=== PATIENT | male | born 1980 | race Caucasian/White ===

== ENCOUNTER 2017-12-23 01:12 | Emergency (ER) | payer SELFPAY ==
[2017-12-23 01:14] VITALS: BP 120/84; PULSE 73; RESP 16; TEMP 36.8; O2SAT 98; BMI 24.6
--- NOTE | 2017-12-23 01:48 | ED.DCSUM_ITS ---
History of Present Illness Chief Complaint: Subst Abuse Informant: Patient Onset: Today Context: Gradual Onset Timing: Continuous Quality: anxiety Location: all over Current Severity: Severe Maximum Severity: Severe Relieved by: doing dope and drinking EtOH Associated Symptoms: nausea, dry heaves off and on, agitation, feeling disoriented Narrative: Patient states for 15-20 years, he has been drinking heavily daily. He states as of recently, he drinks 12-15 cans of beer per day. He also has been injecting heroin regularly, for maybe 1-2 years, he states daily constant for at least 6 months. He presents wanting detox. He has never gone through that before. He is feeling disoriented today because he did not shoot up heroin or drink since this morning, more than 12 hours ago. He is feeling very shaky and fidgety and anxious. Nausea all day that transiently resolved after shooting up heroin, dry heaving off and on. Some abdominal cramping earlier but that is gone. Recent Illness/Hospitalization: No - Past Medical History (1) Alcoholism /alcohol abuse Status: Chronic (2) IVDU (intravenous drug user) Status: Chronic Past Medical History - Allergies and Home Meds Allergies/Adverse Reactions: Allergies No Known Allergies Allergy (Verified 12/23/17 01:17) Home Medications: Home Medications Medication Instructions Recorded Lorazepam [Ativan] 1 mg PO TID PRN #12 tab 12/23/17 Primary Care Physician: Dawood Walter MD [NON-STAFF] - (for primary care) Surgical History: no surgical history Smoking Status: Current every day smoker - Family History Maternal Family History: Reports: No pertinent history Review of Systems All systems negative except as indicated Gastrointestinal: Reports: Abdominal pain, Nausea, Vomiting Psych: Reports: Anxiety. Denies: Suicidal thoughts Physical Exam Vital Signs/Narrative: Vital Signs Temp Pulse Resp BP Pulse Ox 12/23/17 01:14 98.3 F 73 16 120/84 H 98 Inital Vital Signs reviewed: Yes General: Well nourished, Well developed Head: Normocephalic, Atraumatic Eyes: Perrl, EOMI ENT: Moist mucous membranes, No rhinorrhea Neck: Supple, Nontender Cardiovascular: Regular rate, Regular rhythm, No murmurs. Negative for: Tachycardia Respiratory: No distress, CTA bilaterally, Chest nontender Abdomen: Soft, Nontender, Nondistended, Normal bowel sounds Back: Nontender, Normal Inspection Extremities: Nontender, No edema Skin: Normal color, No rash, - - Dry skin including palms. No sweat on forehead. Neurological: Alert, Cranial nerves II-XII grossly intact, Normal Strength, Normal Sensation, Normal Gait. Negative for: Oriented x3 - Disoriented to the date. Is 2 days off with regards to the day of the week. Oriented to person and place. Psychological: Agitated - mildly. fidgety, not thrashing., - - anxious Diagnostic/Tx/Re-eval - Medical Decision Making Pt's CIWAr score is 25, and his CINA score is 8. He is appropriate for admission and detox evaluation. After my evaluation and telling him this, it was determined that he has no insurance coverage. In order to be admitted to detox at this facility, he will need to pay salas, and given that, he is declining. I did treat him with intramuscular Ativan, Ultram, and oral Zofran for his symptoms. He feels much better. Since it is 3 in the morning, a message will be given to social work to contact him, so that we can attempt to get him into a detox program. He states that today he is broke, and has decreased access to alcohol because of that, but he is homeless but has someone that occasionally gives him money, so he will drink if he has access to alcohol , to keep him out of withdrawal. He also states that if the prescription is cheap, he could fill and take something. I will give him a prescription for Ativan to use as needed for anxiety, he is aware that I am unable to prescribe him medicines for withdrawal/addiction. He also understands that if he feels that he is getting worse and has no access to alcohol, he should return to the ER immediately. ED Disposition - Plan for ED Patient: Disposition: Home or Assisted Living Chief Complaint: Subst Abuse Diagnosis: Alcohol dependence, Opiate dependence, Opiate withdrawal Instructions: ED Withdrawal Alcohol, ED Drug Abuse General, ED Withdrawal Narcotic Prescriptions: Lorazepam [Ativan] 1 mg PO TID PRN #12 tab PRN Reason: Anxiety Referrals: Dawood Walter MD [NON-STAFF] - (for primary care)
[2017-12-23] MEDS: Ondansetron ODT 4 MG Tablet 8 MG PO (01:49)
[2017-12-23] MEDS: LORazepam 2 MG/ML Syringe IM (01:50)
[2017-12-23] MEDS: traMADol 50 MG Tablet 100 MG PO (01:55)
--- NOTE | 2017-12-23 02:54 | ED.RN ---
[facility] CONTACTED AND MESSAGE LEFT AT THIS TIME FOR FOLLOW UP CARE
[2017-12-23 03:32] VITALS: BP 134/92; PULSE 79; RESP 18; O2SAT 98
== END 2017-12-23 03:32 | disposition home or self-care (01) ==
PROVIDERS: Emergency Provider Emergency Medicine
DX: F10.20 Alcohol dependence, uncomplicated (principal); F11.23 Opioid dependence with withdrawal; Z59.0 Homelessness
CPT/HCPCS: 96372; 99283

== ENCOUNTER 2018-10-26 22:45 | Emergency (ER) | payer MEDICAID, SELFPAY ==
[2018-10-26 22:47] VITALS: BP 124/87; PULSE 74; RESP 18; TEMP 36.5; O2SAT 100; BMI 23.7
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
[2018-10-26 22:56] VITALS: BP 124/78; PULSE 75; RESP 23; O2SAT 100
[2018-10-26] MEDS: fentaNYL 100 MCG/2 ML Ampul 50 MCG IV (23:01)
[2018-10-26] MEDS: Ondansetron 4 MG/2 ML Vial IV (23:02)
[2018-10-26] MEDS: 0.9% Normal Saline 1,000 ML 1000 ML IV (23:04)
[2018-10-26 23:10] LABS: Absolute Lymphocyte Count 4.76 X10^3/ul (0.83-4.51); Absolute Neutrophil Count 3.5 X10^3/uL (2.0-7.7); Basophil# 0.12 X10^3/uL; Basophil% 1.3 % (0-1); Eosinophil# 0.26 X10^3/uL; Eosinophils% 2.9 % (0-5); Hematocrit 41.4 % (40-54); Hemoglobin 13.2 g/dl (13.0-16.5); Lymphocyte # 4.76 X10^3/ul (4.0); Lymphocyte % 52.4 % (19-41); Mean Corp Hgb Conc 31.9 g/gl (32-36); Mean Corpuscular Hgb 28.3 pg (27.0-32.0); Mean Corpuscular Volume 88.8 fL (80-94); Mean Platelet Vol. 10.5 fl (6.2-12.0); Monocyte# 0.46 X10^3/uL; Monocyte% 5.1 % (0-10); Neutrophil # 3.46 X10^3/uL (2.7-7.7); Neutrophil % 38.1 % (47-70); Platelet Count 236 K/mm3 (150-450); RBC Distribution Width CV 15.2 % (11.6-14.6); Red Blood Count 4.66 M/mm3 (4.6-6.2); White Blood Count 9.1 K/mm3 (4.4-11.0)
[2018-10-26 23:13] LABS: POSITIVE COUNT NO; POSITIVE DIFFERENTIAL NO; POSITIVE MORPHOLOGY NO
[2018-10-26 23:30] LABS: ALB/GLOB Ratio 1.1 RATIO (0.9-2.4); AST(SGOT) 229 U/L (15-37); Alanine Aminotransfer ALT/SGPT 240 U/L (16-61); Albumin, Serum 3.8 g/dL (3.2-5.0); Alkaline Phosphatase 79 U/L (45-117); Anion Gap 9 (5-15); BUN 17 mg/dL (7-18); BUN/Creat Ratio 16.8 RATIO (10-20); Calcium,Total 8.2 mg/dL (8.5-10.1); Chloride 105 mmol/L (98-107); Creatinine, Serum 1.01 mg/dL (0.70-1.30); EST Glomerular Filtration Rate 88 mL/min (>60); Est Glom Filt Rate - Afr Amer 107 mL/min (>60); Estimated Creatinine Clearance 109.91 ml/min; Globulin 3.6 g/dL (2.2-4.2); Glucose 98 mg/dL (74-106); Lipase 138 U/L (73-393); Potassium 3.8 mmol/L (3.5-5.1); Protein, Total 7.4 g/dL (6.4-8.2); Sodium Level 136 mmol/L (136-145)
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
[2018-10-26] MEDS: Diphth,Pertuss(Acell),Tet Vac 0.5 ML Vial IM (23:43)
[2018-10-26 23:46] VITALS: BP 126/88; PULSE 77; RESP 20; O2SAT 100
[2018-10-26 23:54] LABS: International Normalized Ratio 1.1; Prothrombin Time (Protime)PT. 14.1 SECONDS (11.7-14.9)
[2018-10-26 23:55] LABS: Partial Thromboplast Time 37.2 Seconds (24.1-36.2)
--- NOTE | 2018-10-27 00:39 | ED.RN ---
SPLINT APPLIED BY DR BETTS WITH ASSISTANCE OF 2 STAFF
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
[2018-10-27] MEDS: fentaNYL 100 MCG/2 ML Ampul 50 MCG IV (00:49)
[2018-10-27 01:08] VITALS: BP 142/94; PULSE 81; RESP 24; O2SAT 97
[2018-10-27 01:15] VITALS: BP 135/71; PULSE 74; RESP 16; O2SAT 100
== END 2018-10-27 01:10 | disposition short-term general hospital (02) ==
LOC: ED 10-27 00:23
PROVIDERS: Emergency Provider Emergency Medicine
DX: S82.832A Other fracture of upper and lower end of left fibula, initial encounter for closed fracture (principal); S82.842A Displaced bimalleolar fracture of left lower leg, initial encounter for closed fracture; S82.142A Displaced bicondylar fracture of left tibia, initial encounter for closed fracture; F11.11 Opioid abuse, in remission; Z79.899 Other long term (current) drug therapy; V03.10XA Pedestrian on foot injured in collision with car, pick-up truck or van in traffic accident, initial encounter; Y93.01 Activity, walking, marching and hiking; Y92.410 Unspecified street and highway as the place of occurrence of the external cause; Y99.8 Other external cause status
CPT/HCPCS: 29505; 70450; 71260; 72125; 73590; 73600; 73620; 74177; 80053; 80320; 83690; 85025; 85610; 85730; 90715; 96361; 96374; 96375; 96376; 99285; Q9967; G0480; J2405

== ENCOUNTER → 2018-12-14 | Outpatient (CLI) | payer MEDICAID, SELFPAY ==
[2018-12-14 16:16] LABS: AST(SGOT) 54 U/L (15-37); Alanine Aminotransfer ALT/SGPT 69 U/L (16-61); Albumin, Serum 3.8 g/dL (3.2-5.0); Alkaline Phosphatase 114 U/L (45-117); Bilirubin, Direct 0.08 mg/dL (0.00-0.30); Globulin 3.9 g/dL (2.2-4.2); Protein, Total 7.7 g/dL (6.4-8.2)
[2018-12-16 20:06] LABS: HCV Quant. RNA PCR 6210000 IU/mL (.)
[2018-12-17 20:38] LABS: HCV log 10 6.793 (.); HEPATITIS B SURFACE AG Negative (Negative); Hep C Antibodies >11.0 s/co ratio (0.0-0.9)
== END | disposition home or self-care (01) ==
DX: R63.0 Anorexia (principal); R53.81 Other malaise; R11.0 Nausea
CPT/HCPCS: 36415; 80076; 86803; 87340; 87522

== ENCOUNTER → 2019-02-26 | Outpatient (CLI) | payer MEDICAID, SELFPAY ==
[2019-02-26 10:40] LABS: Hematocrit 42.8 % (40-54); Hemoglobin 13.9 g/dl (13.0-16.5); Mean Corp Hgb Conc 32.5 g/gl (32-36); Mean Corpuscular Volume 80.1 fL (80-94); Mean Platelet Vol. 11.1 fl (6.2-12.0); Platelet Count 230 K/mm3 (150-450); RBC Distribution Width CV 15.2 % (11.6-14.6); RBC Distribution Width SD 44.6 fl (35.1-43.9); Red Blood Count 5.34 M/mm3 (4.6-6.2); White Blood Count 5.1 K/mm3 (4.4-11.0)
[2019-02-26 10:46] LABS: Scan Indicated on CBC? Y/N NO
[2019-02-26 10:59] LABS: ALB/GLOB Ratio 1.1 RATIO (0.9-2.4); AST(SGOT) 125 U/L (15-37); Alanine Aminotransfer ALT/SGPT 192 U/L (16-61); Alkaline Phosphatase 101 U/L (45-117); Anion Gap 4 (5-15); BUN 17 mg/dL (7-18); BUN/Creat Ratio 19.7 RATIO (10-20); Calcium,Total 9.4 mg/dL (8.5-10.1); Chloride 108 mmol/L (98-107); Creatinine, Serum 0.86 mg/dL (0.70-1.30); EST Glomerular Filtration Rate 106 mL/min (>60); Est Glom Filt Rate - Afr Amer 128 mL/min (>60); Globulin 3.8 g/dL (2.2-4.2); Glucose 89 mg/dL (74-106); Iron 190 ug/dL (65-175); Iron Binding Capacity,Total 321 ug/dL (250-450); PERCENT IRON SATURATION 59.2 % (15.0-55.0); Potassium 3.8 mmol/L (3.5-5.1); Protein, Total 7.8 g/dL (6.4-8.2); Sodium Level 139 mmol/L (136-145)
[2019-02-27 06:06] LABS: HEPATITIS B SURFACE AG Negative (Negative); Hepatitis A AB, Total Negative (Negative); Hepatitis A IgM Antibody Negative (Negative); Hepatitis B Core AB IgM Negative (Negative); Hepatitis B Core Ab Total Negative (Negative); Hepatitis C Ab >11.0 s/co ratio (0.0-0.9)
[2019-02-28 14:09] LABS: HCV Quant. RNA PCR 4300000 IU/mL (.)
[2019-02-28 16:58] LABS: HCV log 10 6.633 (.)
[2019-03-02 18:46] LABS: Hep B Surface Antibodies Non Reactive (.)
== END | disposition home or self-care (01) ==
LOC: MTLAB 07:29
PROVIDERS: Family Provider Family Medicine; PCP Family Medicine; Referring Provider Family Medicine; Visit Provider Family Medicine
DX: D64.9 Anemia, unspecified (principal); R74.8 Abnormal levels of other serum enzymes; Z86.19 Personal history of other infectious and parasitic diseases
CPT/HCPCS: 36415; 80053; 83540; 83550; 85027; 86704; 86705; 86706; 86708; 86709; 86803; 87340; 87522

== ENCOUNTER 2021-02-17 22:16 | Inpatient (IN) | payer MEDICAID, SELFPAY ==
[2021-02-17 22:18] VITALS: BP 130/77; PULSE 74; RESP 16; TEMP 36.4; O2SAT 100; BMI 25.9
--- NOTE | 2021-02-17 22:22 | CM.ED ---
SOCIAL WORK Prior to patient's arrival. Received call from Romy with [facility], patient requesting detox from heroin. Romy to be in tomorrow to complete assessment. Nursing staff updated. Plan: Admit to [facility], REGIONAL COORDINATOR, OVEN TENDER
[2021-02-17 22:57] LABS: Amphetamine Urine VISTA NEGATIVE (<1000 ng/mL); Barbiturate Urine VISTA NEGATIVE (< 200 ng/mL); Benzodiazepine Urine VISTA NEGATIVE (< 200 ng/mL); Cocaine Urine VISTA NEGATIVE (< 300 ng/mL); Ecstacy Urine VISTA POSITIVE (< 500 ng/mL); Methadone Urine VISTA NEGATIVE (< 300 ng/mL); PCP Urine VISTA NEGATIVE (< 25 ng/mL); THC Urine VISTA NEGATIVE (< 50 ng/mL); Vista UDS pH Range 5
[2021-02-17 23:02] LABS: Absolute Neutrophil Count 2.2 X10^3/uL (2.0-7.7); Basophil# 0.08 X10^3/uL; Basophil% 1.2 % (0-1); Eosinophil# 0.26 X10^3/uL; Eosinophils% 3.8 % (0-5); Hematocrit 42.6 % (40-54); Hemoglobin 13.5 g/dL (13.0-16.5); Lymphocyte % 54.7 % (19-41); Mean Corp Hgb Conc 31.7 g/dL (32-36); Mean Corpuscular Volume 91.4 fL (80-94); Mean Platelet Vol. 10.4 fl (6.2-12.0); Monocyte% 7.4 % (0-10); NRBC Flagged by Analyzer 0 % (0-5); Neutrophil % 32.6 % (47-70); Platelet Count 213 K/mm3 (150-450); RBC Distribution Width CV 13.1 % (11.6-14.6); RBC Distribution Width SD 43.8 fl (35.1-43.9); Red Blood Count 4.66 M/mm3 (4.6-6.2); White Blood Count 6.8 K/mm3 (4.4-11.0)
--- NOTE | 2021-02-17 23:14 | EDS_ITS ---
HPI History of Present Illness Chief Complaint: Substance Abuse Narrative Narrative: Patient presents to the emergency department requesting detox from opiates. His last usage of heroin via snorting was this morning. He stated he uses frequently. He has detoxed on his own in the past. Has been using regularly since last May. He went to [facility] this afternoon. They told him that he would be a candidate for inpatient detox. Denies any other illicit substances. Denies being intoxicated with alcohol currently. Denies any chronic medical problems. [facility] Medical History Substance abuse Home Medications NK 02/17/21 [History Last Taken Unknown] Allergy/AdvReac Type Severity Reaction Status Date / Time No Known Allergies Allergy Verified 02/17/21 22:17 Social History Smoking Status: Current every day smoker tobacco type: e-cigarettes ROS ROS ED ROS Narrative ROS General: Denies fever, chills, sweats Eyes: Denies visual changes, blurred vision, double vision ENT: Denies ear pain, rhinorrhea, sore throat Cardiovascular: Denies chest pain, palpitations, heart racing Respiratory: Denies dyspnea, cough, sputum, dyspnea on exertion, orthopnea,PND GI: Denies abdominal pain, nausea, vomiting, diarrhea, constipation, melena : Denies dysuria, hematuria, frequency Musculoskeletal: Denies myalgias, arthralgias, neck pain, back pain Skin: Denies rash, abscess, abrasions Neuro: Denies headache, weakness, paresthesia Psych: Denies depression, anxiety Endo: Denies polyuria, polydipsia, polyphagia Heme: Denies easy bruising, easy bleeding, lymphadenopathy Allergy: Denies hives, swelling EXAM Physical Exam Narrative Exam Narrative: Vital signs reviewed General: Well-nourished well-developed Head: Normocephalic atraumatic Eyes: Pupils equal round and reactive to light extraocular movements intact ENT: TMs clear no hemotympanum no trauma Neck: Nontender full range of motion Cardiovascular: Regular rate rhythm no murmurs normal S1-S2 Respiratory: No distress clear to auscultation bilaterally chest nontender Abdomen: Soft nontender nondistended normal bowel sounds no masses Back: Nontender no CVA tenderness Extremities: Nontender active range of motion ?4 extremities no trauma Skin: Normal color no trauma Neuro alert oriented cranial nerves II through XII intact normal strength sensation reflexes Const Vital Signs: 02/17/21 22:18 Temperature 97.6 F L Temperature Source Temporal Pulse Rate 74 Respiratory Rate 16 Blood Pressure 130/77 H Blood Pressure Mean 94 Pulse Ox 100 Oxygen Delivery Method Room Air MDM MDM MDM Narrative Medical decision making narrative: Medical screening will be undertaken. CBC shows nothing acute. Toxicology screen is only positive for methamphetamines. Opiates are actually negative. Alcohol is negative. Patient we discussed with the hospitalist. Lab Data Labs: Laboratory Results - last 24 hr 02/17/21 02/17/21 02/17/21 22:28 22:44 22:44 WBC 6.8 RBC 4.66 Hgb 13.5 Hct 42.6 MCV 91.4 MCH 29.0 MCHC 31.7 L RDW Std Deviation 43.8 RDW Coeff of Ankita 13.1 Plt Count 213 MPV 10.4 Immature Gran % (Auto) 0.300 Neut % (Auto) 32.6 L Lymph % (Auto) 54.7 H [place] % (Auto) 7.4 Eos % (Auto) 3.8 Baso % (Auto) 1.2 H Absolute Neuts (auto) 2.2 Absolute Lymphs (auto) 3.70 Nucleated RBC % 0 Urine Opiates Screen NEGATIVE Urine Methadone Screen NEGATIVE Ur Barbiturates Screen NEGATIVE Ur Phencyclidine Scrn NEGATIVE Ur Amphetamines Screen NEGATIVE U Methamphetamin-MDMA POSITIVE H U Benzodiazepines Scrn NEGATIVE Urine Cocaine Screen NEGATIVE U Cannabinoids Screen NEGATIVE Ur Drug Screen Comment Ethyl Alcohol 11.0 Discharge Plan Triage Chief Complaint: Substance Abuse ED Provider: Alfonso Freitas Dx/Rx/DC Orders Clinical Impression: Heroin abuse Prescriptions: No Action NK RF: 0 Primary Care Provider: Deepak Vela Referrals: Deepak Vela MD [Primary Care Provider] - Disposition Disposition: Acute Care [facility]
[2021-02-17 23:15] LABS: Anion Gap 5 (5-15); BUN 18 mg/dL (7-18); BUN/Creat Ratio 19.3 RATIO (10-20); Calcium,Total 8.4 mg/dL (8.5-10.1); Chloride 106 mmol/L (98-107); Creatinine, Serum 0.94 mg/dL (0.70-1.30); EST Glomerular Filtration Rate 95 mL/min (>60); Est Glom Filt Rate - Afr Amer 115 mL/min (>60); Glucose 103 mg/dL (74-106); Sodium Level 139 mmol/L (136-145)
[2021-02-17 23:17] VITALS: RESP 16
[2021-02-17 23:29] VITALS: BP 142/84; PULSE 71; RESP 18; TEMP 37.1; O2SAT 98
--- NOTE | 2021-02-17 23:55 | PCM.HP.STD ---
HPI - General General Date of Admission: 02/17/21 Date of Service: 02/17/21 Chief Complaint: Acute Opiate withdrawal HPI Narrative The patient is a 40 y/o M w/ PMHx: Anxiety and Depression, record reported EtOH abuse history, Tobacco use, Chronic hepatitis C, Polysubstance abuse (Heroine prior IV, currently snorting, usage x 7-8 years, 1/2-1 gm daily, last usage early in the AM on day of ED presentation) who presents to the [facility] ED on 02/17/21 w/ noted acute opiate withdrawal onset starting mid-afternoon with abdominal cramping, generalized body aches and pains, rhinorrhea, piloerection, fatigue, restless leg, sweating. Patient interested in attaining clean status and notes that he presented to the ED with his girlfriend who is also a substance abuser. Discussed current UDS which was negative for opiates and he notes there is certainly a possibility that fentanyl is being administered instead and that he and his girlfriend have often wondered. Work-up in the ED included T 97.6, heart rate 74, BP 130/77, respiratory rate 16, 100% on room air, CBC with WC 6.8, hemoglobin 13.5, platelet 213 without marked shift, BMP unremarkable, UDS with positive methamphetamine, ethyl alcohol 11. [facility] Medical History (Updated 02/18/21 @ 01:[address] Mary Juarez MD) Alcohol abuse Anxiety Depression Smoker Substance abuse Home Medications NK 02/17/21 [History Last Taken Unknown] Allergy/AdvReac Type Severity Reaction Status Date / Time No Known Allergies Allergy Verified 02/17/21 22:17 Family History (Updated 02/18/21 @ 01:[address] Mary Juarez MD) Father Heart disease other (Denies any marked maternal family history including HD, DM, CA.) Surgical History (Updated 02/18/21 @ 01:[address] Mary Juarez MD) History of surgery on extremity Social History (Updated 02/18/21 @ 01:[address] Mary Juarez MD) household members: none Smoking Status: Current every day smoker tobacco type: e-cigarettes how long ago did patient quit smoking: Patient quit cig tobacco use ~ 1 year prior, 20 pack year history prior. alcohol intake: current details: Reports occasional EtOH intake. Records note 6-8 beers routinely. substance use type: heroin ROS ROS Narrative Admission Review of Systems: CONSTITUTIONAL: No weight loss, fever, + chills, weakness or fatigue. HEENT: Eyes: No visual loss, blurred vision, double vision or yellow sclerae. Ears, Nose, Throat: No hearing loss, sneezing, congestion, runny nose or sore throat. SKIN: No rash or itching, lesions, wounds. CARDIOVASCULAR: No chest pain, chest pressure or chest discomfort, palpitations, edema, orthopnea, syncopal events. RESPIRATORY: No shortness of breath, cough or sputum, wheezing, hemoptysis. GASTROINTESTINAL: + anorexia, nausea, abdominal cramping, No vomiting, diarrhea, melena, BRBPR. GENITOURINARY: No dysuria, frequency, urgency or retention. NEUROLOGICAL: No headache, dizziness, syncope, paralysis, ataxia, numbness or tingling in the extremities, focal weakness, change in bowel or bladder control, seizure. MUSCULOSKELETAL: + muscle, back pain, joint pain or stiffness. HEMATOLOGIC: No anemia, bleeding or bruising. LYMPHATICS: No enlarged nodes. No history of splenectomy. PSYCHIATRIC: + history of depression or anxiety. ENDOCRINOLOGIC: + reports of sweating, cold or heat intolerance. No polyuria or polydipsia. ALLERGIES: No history of asthma, hives, eczema or rhinitis. Vital Signs Vital Signs Vital Signs: 02/17/21 22:18 02/17/21 23:17 02/17/21 23:29 Temperature 97.6 F L 98.7 F Temperature Source Temporal Oral Pulse Rate 74 71 Respiratory Rate 16 16 18 Blood Pressure 130/77 H 142/84 H Blood Pressure Mean 94 103 Pulse Ox 100 98 Oxygen Delivery Method Room Air Room Air Weight Weight: 191 lb Body Mass Index (BMI) 25.9 Physical Exam Narrative Physical Examination: General: Awake, alert, oriented x 3 and cooperative, seated upright in the ED bed, very fatigued with intermittent restlessness. Skin: Normal color, normal turgor, no icterus, no cyanosis. HEENT: AT/NC, EOMI, PERRLA, dry MM, no carotid bruits or JVD noted. Lungs: CTA bilaterally, moderate effort, mild decrease BL bases, no rales, ronchi or wheezing. Heart: Regular rate and rhythm; no gallop, rub audible. Abdomen: Soft, mild generalized discomfort to palpation with no rebound or guarding, ND, mildly hyperactive BS, no HSM. Extremities: No cyanosis, clubbing, or edema. Neurological: Patient awake, alert, oriented as noted, cognitive function intact; pupils equally reactive to light and accommodation, cranial nerves II-XII grossly normal, moving all 4 extremities, no focal deficits, strength mildly to moderately global decrease. Psychiatric: Affect appears fatigued with intermittent restlessness, no acute evidence of depressive or anxiety feelings. Results Lab / Micro Data Result Diagrams: 02/17/21 22:44 02/17/21 22:44 Labs: Laboratory Results - last 24 hr 02/17/21 02/17/21 02/17/21 22:28 22:44 22:44 WBC 6.8 RBC 4.66 Hgb 13.5 Hct 42.6 MCV 91.4 MCH 29.0 MCHC 31.7 L RDW Std Deviation 43.8 RDW Coeff of Ankita 13.1 Plt Count 213 MPV 10.4 Immature Gran % (Auto) 0.300 Neut % (Auto) 32.6 L Lymph % (Auto) 54.7 H Harmon % (Auto) 7.4 Eos % (Auto) 3.8 Baso % (Auto) 1.2 H Absolute Neuts (auto) 2.2 Absolute Lymphs (auto) 3.70 Nucleated RBC % 0 Sodium 139 Potassium 4.0 Chloride 106 Carbon Dioxide 28.0 Anion Gap 5 BUN 18 Creatinine 0.94 Estim Creat Clear Calc 115.80 Est GFR (MDRD) Af Amer 115 Est GFR (MDRD) Non-Af 95 BUN/Creatinine Ratio 19.3 Glucose 103 Calcium 8.4 L Urine Opiates Screen NEGATIVE Urine Methadone Screen NEGATIVE Ur Barbiturates Screen NEGATIVE Ur Phencyclidine Scrn NEGATIVE Ur Amphetamines Screen NEGATIVE U Methamphetamin-MDMA POSITIVE H U Benzodiazepines Scrn NEGATIVE Urine Cocaine Screen NEGATIVE U Cannabinoids Screen NEGATIVE Ur Drug Screen Comment Ethyl Alcohol 02/17/21 22:44 WBC RBC Hgb Hct MCV MCH MCHC RDW Std Deviation RDW Coeff of Ankita Plt Count MPV Immature Gran % (Auto) Neut % (Auto) Lymph % (Auto) Harmon % (Auto) Eos % (Auto) Baso % (Auto) Absolute Neuts (auto) Absolute Lymphs (auto) Nucleated RBC % Sodium Potassium Chloride Carbon Dioxide Anion Gap BUN Creatinine Estim Creat Clear Calc Est GFR (MDRD) Af Amer Est GFR (MDRD) Non-Af BUN/Creatinine Ratio Glucose Calcium Urine Opiates Screen Urine Methadone Screen Ur Barbiturates Screen Ur Phencyclidine Scrn Ur Amphetamines Screen U Methamphetamin-MDMA U Benzodiazepines Scrn Urine Cocaine Screen U Cannabinoids Screen Ur Drug Screen Comment Ethyl Alcohol 11.0 Assessment & Plan Assessment/Plan (1) Opiate withdrawal: PLAN: The patient is a 40 y/o M w/ PMHx: Anxiety and Depression, record reported EtOH abuse history, Tobacco use, Chronic hepatitis C, Polysubstance abuse who presents to the [facility] ED on 02/17/21 w/ noted acute opiate withdrawal onset starting mid-afternoon. 1. Acute Opiate Withdrawal: Will admit to [facility], routine labs including CBC, CMP, urine for drug screen obtained in the ED, will initiate and continue on protocol with tapering course of Subutex, as needed tylenol, ibuprofen, bowel regimen, gabapentin, Bentyl, Vistaril, methocarbamol, clonidine, PRN nightly trazodone for insomnia, IV fluids, IV antiemetics. Once patient clinically improved and completion of taper nearing will plan consultation with case management for transition to next level of rehabilitation care. 2. Polysubstance Abuse, IVDA Hx, History of Hepatitis C, Chronic: Patient currently not candidate for hep C treatment currently as needs to be clean, sober x 6 months, documented attendance NA or AA meetings, counseling and ongoing negative drug screens. HIV, hepatitis panel to assess for co-infection pending. Encouraged PCP establishment and follow-up. 3. Chart reported alcohol abuse: Patient denies any current alcohol abuse, ethyl alcohol level 11 upon presentation, given history encourage sobriety however patient reports currently occasional alcohol intake. 4. Anxiety depression: Not on regimen, likely contributes to substance abuse, 180 in case management consulted and pending. 5. Tobacco Abuse: Encouraged cessation, inpatient consultation per RT, NR if desired. 6. DVT prophylaxis: Low risk, encourage ambulation. Charges/Coding Visit Charges Inpatient E&M: 58370 Init Hosp L3
[2021-02-17 23:56] VITALS: BMI 26.8
[2021-02-18] VITALS (7 sets, daily range): BP systolic 111–149; BP diastolic 56–88; PULSE 54–72; RESP 16–18; TEMP 36.6–37.1; O2SAT 95–100
[2021-02-18] MEDS: Lactated Ringers 1,000 ML 125 ML IV (00:32)
[2021-02-18 00:49] LABS: HIV - WCH Non-Reactive (Nonreactive)
[2021-02-18] MEDS: cloNIDine HCl 0.1 MG Tablet PO ×3 (00:50→21:11)
[2021-02-18] MEDS: traZODone 100 MG Tablet PO ×2 (00:50→19:49)
[2021-02-18] MEDS: Buprenorphine HCl 2 MG TAB.SUBL SL ×3 (00:50→16:13)
[2021-02-18] MEDS: Methocarbamol 750 MG Tablet 1500 MG PO ×3 (00:50→16:13)
[2021-02-18] MEDS: 0.9% Saline Lock 10 ML Syringe IV ×5 (00:50→21:11)
[2021-02-18] MEDS: Gabapentin 300 MG Capsule PO ×2 (03:35→16:15)
[2021-02-18] MEDS: Ondansetron 8 MG Tablet PO ×2 (04:06→16:13)
[2021-02-18] MEDS: hydrOXYzine PAM 25 MG Capsule 50 MG PO ×4 (04:06→17:42)
--- NOTE | 2021-02-18 07:43 | NURSING ---
pt states that he consumes alcohol daily- states a large amount, i last drank yesterday morning, just a little bit. states ETOH of choice is Beer, tall boys about 4 a day
--- NOTE | 2021-02-18 07:59 | PN.HOSP_ITS ---
Subjective Subjective Patient drinks alcohol daily, 10 large cans or 5 small cans and 5 large cans for last 20 years. Currently undergoing withdrawal symptoms with restlessness, tremors, shakiness. Patient also had withdrawal seizure about 10 to 15 years ago. Denies history of cirrhosis or cirrhosis related complications/stigmata of chronic liver disease. Patient required 2 mg IV Ativan in the morning and again today for CIWA score more than 15 Objective Data Objective Data Vital Signs: Vital Signs Temp Pulse Resp BP Pulse Ox 97.8 F 54 L 18 133/88 H 99 02/18/21 07:40 02/18/21 07:40 02/18/21 07:40 02/18/21 07:40 02/18/21 07:40 Oxygen Delivery Method Room Air Weight: 197 lb 12.074 oz Body Mass Index (BMI) 26.8 Lab / Micro Data Result Diagrams: 02/17/21 22:44 02/17/21 22:44 Labs: Laboratory Results - last 24 hr 02/17/21 02/17/21 02/17/21 22:28 22:44 22:44 WBC 6.8 RBC 4.66 Hgb 13.5 Hct 42.6 MCV 91.4 MCH 29.0 MCHC 31.7 L RDW Std Deviation 43.8 RDW Coeff of Ankita 13.1 Plt Count 213 MPV 10.4 Immature Gran % (Auto) 0.300 Neut % (Auto) 32.6 L Lymph % (Auto) 54.7 H Millard % (Auto) 7.4 Eos % (Auto) 3.8 Baso % (Auto) 1.2 H Absolute Neuts (auto) 2.2 Absolute Lymphs (auto) 3.70 Nucleated RBC % 0 Sodium 139 Potassium 4.0 Chloride 106 Carbon Dioxide 28.0 Anion Gap 5 BUN 18 Creatinine 0.94 Estim Creat Clear Calc 115.80 Est GFR (MDRD) Af Amer 115 Est GFR (MDRD) Non-Af 95 BUN/Creatinine Ratio 19.3 Glucose 103 Calcium 8.4 L Urine Opiates Screen NEGATIVE Urine Methadone Screen NEGATIVE Ur Barbiturates Screen NEGATIVE Ur Phencyclidine Scrn NEGATIVE Ur Amphetamines Screen NEGATIVE U Methamphetamin-MDMA POSITIVE H U Benzodiazepines Scrn NEGATIVE Urine Cocaine Screen NEGATIVE U Cannabinoids Screen NEGATIVE Ur Drug Screen Comment Ethyl Alcohol HIV 1&2 Antibody 02/17/21 02/17/21 22:44 22:44 WBC RBC Hgb Hct MCV MCH MCHC RDW Std Deviation RDW Coeff of Ankita Plt Count MPV Immature Gran % (Auto) Neut % (Auto) Lymph % (Auto) Millard % (Auto) Eos % (Auto) Baso % (Auto) Absolute Neuts (auto) Absolute Lymphs (auto) Nucleated RBC % Sodium Potassium Chloride Carbon Dioxide Anion Gap BUN Creatinine Estim Creat Clear Calc Est GFR (MDRD) Af Amer Est GFR (MDRD) Non-Af BUN/Creatinine Ratio Glucose Calcium Urine Opiates Screen Urine Methadone Screen Ur Barbiturates Screen Ur Phencyclidine Scrn Ur Amphetamines Screen U Methamphetamin-MDMA U Benzodiazepines Scrn Urine Cocaine Screen U Cannabinoids Screen Ur Drug Screen Comment Ethyl Alcohol 11.0 HIV 1&2 Antibody Non-Reactive Physical Exam Narrative General: Alert, hyperactive, mild agitation, oriented x3 cooperative HEENT: Atraumatic, PERRLA, EOMI, Normocephalic Oral: No Gingival or Mucosal Lesions/ Ulcerations Neck: Supple, No JVD, Negative Carotid Bruits Lungs: Air entry diminished in bilateral lung bases. No crepitation/rhonchi Cardiovascular: Regular rate, Regular Rhythm, Normal S1, Normal S2, No murmurs Abdomen: Bowel Sounds Present, Soft, Non Tender, Non-Distended : No renal angle tenderness. No suprapubic tenderness. Extremities: No edema, Capillary Refill Less than 3 Seconds Skin: No rashes, No breakdown Musculoskeletal: Tremors in whole body. No Tenderness to Palpation of Joints or Extremities Neurological: Cranial nerves II-XII grossly intact, Deep Tendon Reflexes 2+/4 and Symmetrical, Neuro grossly intact Psych/Mental Status: Restless and anxious Assessment & Plan Assessment/Plan (1) Opiate withdrawal: (2) Alcohol withdrawal delirium, acute, hyperactive: PLAN: The patient is a 40 y/o M with history of chronic alcohol use, chronic opioid use/heroin IV prior currently snorting, chronic hepatitis C was admitted for acute opioid withdrawal syndrome around mid afternoon on 02/17. Today in the morning he developed acute alcohol withdrawal syndrome with CIWA score more than 15. 1. Acute Opiate Withdrawal syndrome: Patient is admitted on MedSur floor. On buprenorphine based other supportive medications including gabapentin, Bentyl, Vistaril, methocarbamol, clonidine and trazodone as needed. e commerce marketing manager 180 has been consulted. 2. Acute alcohol withdrawal syndrome with chronic use of alcohol and tolerance and dependence: Patient on phenobarbital based other supportive medications. On IV Ativan 2 mg every 2 hourly as needed for CIWA score more than 15. Discussed with the nursing staff. 3. Polysubstance Abuse, IVDA Hx, chronic hepatitis C: Patient has never been treated for hepatitis C. Hepatitis C panel is pending. HIV 1 and 2 antibody are nonreactive. 4. Anxiety and depression: 180 case management counseling, may be ps ychologist follow-up or psychiatrist as an outpatient. 5. Tobacco Abuse: On nicotine patch. Counseled for cessation. 6. DVT prophylaxis: Low risk, encourage ambulation Charges/Coding Visit Charges Inpatient E&M: 74663 Subs Hosp L2
[2021-02-18] MEDS: Mag Hydrox/Al Hydrox/Simeth 30 ML UDC PO (08:01)
[2021-02-18] MEDS: Dicyclomine 10 MG Capsule 20 MG PO ×2 (08:01→16:13)
[2021-02-18] MEDS: Ibuprofen 600 MG Tablet PO ×2 (08:01→17:41)
[2021-02-18] MEDS: Phenobarbital 32.4 MG Tablet 64.8 MG PO ×4 (08:40→19:49)
[2021-02-18] MEDS: Thiamine Hydrochloride 100 MG Tablet PO (08:40)
[2021-02-18] MEDS: LORazepam 2 MG/ML Syringe IV ×5 (08:40→21:11)
[2021-02-18] MEDS: Folic Acid 1 MG Tablet PO (08:40)
[2021-02-19] MEDS: Phenobarbital 32.4 MG Tablet 64.8 MG PO ×7 (00:10→23:59)
[2021-02-19 02:00] VITALS: BP 113/58; PULSE 59; RESP 16; TEMP 36.6; O2SAT 95
[2021-02-19] MEDS: Buprenorphine HCl 2 MG TAB.SUBL SL ×3 (08:59→23:59)
--- NOTE | 2021-02-19 08:59 | ADDICTION ---
This comic book writer attempted to meet with PT. PT did not rouse to verbal queuing. PT to be seen at next visit.
[2021-02-19] MEDS: Folic Acid 1 MG Tablet PO (09:00)
[2021-02-19] MEDS: Thiamine Hydrochloride 100 MG Tablet PO (09:00)
[2021-02-19] MEDS: hydrOXYzine PAM 25 MG Capsule 50 MG PO ×2 (09:00→20:32)
[2021-02-19 09:30] VITALS: PULSE 52
[2021-02-19 11:43] VITALS: BP 99/62; PULSE 60; RESP 16; TEMP 37.1; O2SAT 98
--- NOTE | 2021-02-19 12:03 | PN.HOSP_ITS ---
Subjective Subjective Patient is sleepy and lethargic. Although symptoms of withdrawal little better than yesterday. Hyperactivity, restlessness and agitation is better controlled. Objective Data Objective Data Vital Signs: Vital Signs Temp Pulse Resp BP Pulse Ox 98.7 F 60 16 99/62 98 02/19/21 11:43 02/19/21 11:43 02/19/21 11:43 02/19/21 11:43 02/19/21 11:43 Oxygen Delivery Method Room Air Weight: 197 lb 12.074 oz Body Mass Index (BMI) 26.8 Intake & Output: Intake and Output for Last 24 Hours 02/17/21 02/18/21 02/19/21 23:59 23:59 23:59 Intake Total 1000 / 1000 Balance 1000 / 1000 Lab / Micro Data Result Diagrams: 02/17/21 22:44 02/17/21 22:44 Physical Exam Narrative General: Lethargic, did not good eye contact. HEENT: Atraumatic, PERRLA, EOMI, Normocephalic Oral: No Gingival or Mucosal Lesions/ Ulcerations Neck: Supple, No JVD, Negative Carotid Bruits Lungs: Air entry diminished in bilateral lung bases. No crepitation/rhonchi Cardiovascular: Regular rate, Regular Rhythm, Normal S1, Normal S2, No murmurs Abdomen: Bowel Sounds Present, Soft, Non Tender, Non-Distended : No renal angle tenderness. No suprapubic tenderness. Extremities: No edema, Capillary Refill Less than 3 Seconds Skin: No rashes, No breakdown Musculoskeletal: Tremors in whole body. No Tenderness to Palpation of Joints or Extremities Neurological: Cranial nerves II-XII grossly intact, Deep Tendon Reflexes 2+/4. Psych/Mental Status: Flat affect, sleepy Assessment & Plan Assessment/Plan (1) Opiate withdrawal: (2) Alcohol withdrawal delirium, acute, hyperactive: PLAN: The patient is a 40 y/o M with history of chronic alcohol use, chronic opioid use/heroin IV prior currently snorting, chronic hepatitis C was admitted for acute opioid withdrawal syndrome around mid afternoon on 02/17. Today in the morning he developed acute alcohol withdrawal syndrome with CIWA score more than 15. 1. Acute Opiate Withdrawal syndrome: Patient is admitted on MedSurg floor. On buprenorphine based other supportive medications including gabapentin, Bentyl, Vistaril, methocarbamol, clonidine and trazodone as needed. manager of enterprise 180 has been consulted. /: Hyperactivity, restlessness and delirium symptoms are better controlled. Continue medications. 2. Acute alcohol withdrawal syndrome with chronic use of alcohol and tolerance and dependence: Patient on phenobarbital based other supportive medications. Ativan dose decreased. Discussed with the nursing staff. 3. Polysubstance Abuse, IVDA Hx, chronic hepatitis C: Patient has never been treated for hepatitis C. Hepatitis C panel is pending. HIV 1 and 2 antibody are nonreactive. 4. Anxiety and depression: 180 case management counseling, may be psychologist follow-up or psychiatrist as an outpatient. 5. Tobacco Abuse: On nicotine patch. Counseled for cessation. 6. DVT prophylaxis: Low risk, encourage ambulation Charges/Coding Visit Charges Inpatient E&M: 32538 Subs Hosp L2
[2021-02-19 14:09] LABS: HEPATITIS B SURFACE AG Negative (Negative); Hepatitis B Core AB IgM Negative (Negative); Hepatitis B Core Ab Total Negative (Negative); Hepatitis Be Ab Negative (Negative); Hepatitis Be Ag Negative (Negative)
[2021-02-19] MEDS: Gabapentin 300 MG Capsule PO (16:17)
[2021-02-19] MEDS: Methocarbamol 750 MG Tablet 1500 MG PO ×2 (16:17→23:58)
[2021-02-19 18:33] VITALS: BP 120/80; PULSE 60; RESP 16; TEMP 37.7; O2SAT 93
[2021-02-19 20:20] VITALS: BP 112/69; PULSE 64; RESP 16; TEMP 37.2; O2SAT 98
[2021-02-19] MEDS: Ibuprofen 600 MG Tablet PO (20:31)
[2021-02-19] MEDS: cloNIDine HCl 0.1 MG Tablet PO (20:31)
[2021-02-19] MEDS: traZODone 100 MG Tablet PO (20:32)
[2021-02-19] MEDS: Ondansetron 8 MG Tablet PO (20:32)
[2021-02-20] MEDS: Gabapentin 300 MG Capsule PO ×2 (00:07→09:15)
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
[2021-02-20 04:20] VITALS: BP 109/57; PULSE 63; RESP 16; TEMP 36.8; O2SAT 98
[2021-02-20] MEDS: Ibuprofen 600 MG Tablet PO (04:23)
[2021-02-20] MEDS: hydrOXYzine PAM 25 MG Capsule 50 MG PO (04:23)
[2021-02-20] MEDS: Phenobarbital 32.4 MG Tablet 64.8 MG PO ×2 (04:23→09:12)
[2021-02-20 07:36] LABS: Hep B Surface Antibodies Non Reactive (.)
[2021-02-20 07:37] LABS: Hepatitis C Ab >11.0 s/co ratio (0.0-0.9)
[2021-02-20] MEDS: Thiamine Hydrochloride 100 MG Tablet PO (09:12)
[2021-02-20] MEDS: Folic Acid 1 MG Tablet PO (09:12)
[2021-02-20] MEDS: Methocarbamol 750 MG Tablet 1500 MG PO (09:15)
--- NOTE | 2021-02-20 10:22 | PCM.DC.SUM ---
Providers Date of Admission: 02/17/21 Primary Care Physician: Ann Primary Care Phys Reason For Visit: OPIATE WITHDRAWAL Diagnosis Discharge Diagnosis (1) Opiate withdrawal: Status: Acute Code(s): F11.23 - Opioid dependence with withdrawal (2) Alcohol withdrawal delirium, acute, hyperactive: Status: Acute Code(s): F10.231 - Alcohol dependence with withdrawal delirium Medications at Discharge Home Medications NK 02/17/21 Hospital Course Procedures None Summary of Care Provided Hospital Course: 40 year old presents for treatment for opiate withdrawal. He was on a buprenorphine taper. His last dose was to be at 1245 today. He left AMA casting vulgarities at RNs on his way out the door. Earlier he told he had a plan for outpt addiction mgmt. I asked if he would mind telling what programs, then he said he did mind. Physical Exam Const alert Constitutional Narrative: lying in bed flat affect, no eye contact. Weight / BMI Weight Weight: 89.7 kg Body Mass Index (BMI) 26.8 ABG / Lab / Microbiology Data Result Diagrams: 02/17/21 22:44 02/17/21 22:44 Laboratory: Laboratory Results - last 24 hr 02/18/21 06:00 Hep Bs Antigen Negative Hep Bs Antibody Non Reactive Hep B Core Total Ab Negative Hep B Core IgM Ab Negative Hepatitis Be Antibody Negative Hepatitis Be Antigen Negative Hepatitis C Antibody >11.0 H Meaningful Use Info Meaningful Use Diagnoses (Choose all that apply): None applicable Discharge Plan Admission Admit Date/Time: 02/17/21 23:58 Attending Provider: Jose M Slade Primary Care Provider: Care Physician,No Primary Discharge Orders/Prescriptions Prescriptions: No Action NK RF: 0 Referrals / Follow Up: Deepak Vela MD [NON-STAFF] - Care Physician,No Primary [Primary Care Provider] - Disposition Disposition (needs filled in before D/C Order can be placed): Against Medical Advice
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
== END 2021-02-20 10:00 | disposition left against medical advice (07) | DRG 770 ==
LOC: ED 23:37 → MS3 02-18 02:49
PROVIDERS: Admitting Provider Family Medicine; Emergency Provider Emergency Medicine
DX: F11.23 Opioid dependence with withdrawal (principal); F10.231 Alcohol dependence with withdrawal delirium; Y90.0 Blood alcohol level of less than 20 mg/100 ml; F32.9 Major depressive disorder, single episode, unspecified; F41.9 Anxiety disorder, unspecified; F17.290 Nicotine dependence, other tobacco product, uncomplicated; Z86.19 Personal history of other infectious and parasitic diseases
CPT/HCPCS: 36415; 80048; 80307; 82077; 85025; 86703; 86704; 86705; 86706; 86707; 86803; 87340; 87350; 97802; 99283; 99406; J7120; A4216

== ENCOUNTER 2021-02-24 00:07 | Observation (INO) | payer MEDICAID, SELFPAY ==
[2021-02-24 00:07] VITALS: BP 127/79; PULSE 60; RESP 18; TEMP 36.5; O2SAT 98; BMI 23.7
[2021-02-24 00:46] LABS: Absolute Lymphocyte Count 3.46 X10^3/uL (0.83-4.51); Absolute Neutrophil Count 4.8 X10^3/uL (2.0-7.7); Basophil# 0.08 X10^3/uL; Basophil% 0.9 % (0-1); Eosinophil# 0.03 X10^3/uL; Eosinophils% 0.3 % (0-5); Hematocrit 46.1 % (40-54); Hemoglobin 14.6 g/dL (13.0-16.5); Lymphocyte # 3.46 X10^3/ul (0.83-4.51); Lymphocyte % 38.8 % (19-41); Mean Corp Hgb Conc 31.7 g/dL (32-36); Mean Corpuscular Hgb 27.8 pg (27.0-32.0); Mean Corpuscular Volume 87.8 fL (80-94); Mean Platelet Vol. 10.1 fl (6.2-12.0); Monocyte# 0.52 X10^3/uL; Monocyte% 5.8 % (0-10); NRBC Flagged by Analyzer 0 % (0-5); Neutrophil # 4.81 X10^3/uL (2.7-7.7); Platelet Count 283 K/mm3 (150-450); RBC Distribution Width SD 42.1 fl (35.1-43.9); Red Blood Count 5.25 M/mm3 (4.6-6.2); White Blood Count 8.9 K/mm3 (4.4-11.0)
[2021-02-24] MEDS: Ondansetron 4 MG/2 ML Vial IV (00:46)
[2021-02-24] MEDS: Dicyclomine 10 MG Capsule 20 MG PO (00:48)
[2021-02-24] MEDS: Phenobarbital 32.4 MG Tablet 97.2 MG PO ×4 (00:49→13:07)
[2021-02-24] MEDS: hydrOXYzine PAM 25 MG Capsule 50 MG PO ×2 (00:49→05:06)
--- NOTE | 2021-02-24 00:50 | EDS_ITS ---
HPI History of Present Illness Chief Complaint: Substance Abuse Narrative Narrative: Patient presenting secondary to substance abuse. Patient has longstanding history of IV heroin and fentanyl abuse, as well as alcohol abuse. Patient states that he was admitted to the detox program on 629. He was going through that, and then signed out AGAINST MEDICAL ADVICE on 7 . Patient does tell me that he has not used opiates since his discharge, but states that he has been actually using alcohol again to help with his withdrawal symptoms. He tells me that he has been drinking just enough to prevent him from having the shakes or a alcohol withdrawal seizure. Patient states that he has been getting some intermittent hallucinations, that he describes as shadows. Patient reports generalized pain, and generalized feelings of illness from his opiate withdrawal. [facility] Medical History Alcohol abuse Anxiety Depression Smoker Substance abuse Home Medications NK 02/17/21 [History Last Taken Unknown] Allergy/AdvReac Type Severity Reaction Status Date / Time No Known Allergies Allergy Verified 02/24/21 00:10 Family History Father Heart disease Surgical History History of surgery on extremity Social History household members: none Smoking Status: Current every day smoker tobacco type: e-cigarettes how long ago did patient quit smoking: Patient quit cig tobacco use ~ 1 year prior, 20 pack year history prior. alcohol intake: current details: Reports occasional EtOH intake. Records note 6-8 beers routinely. substance use type: heroin ROS ROS ED Constitutional Constitutional ED: Denies chills, fever(s) or weight loss Eyes Eyes: Denies change in vision ENT ENT ED: Denies rhinorrhea or sore throat Cardiovascular Cardiovascular: Denies chest pain Respiratory/Chest Respiratory/Chest: Denies cough Gastrointestinal Gastrointestinal: Reports nausea Genitourinary Genitourinary ED: Denies dysuria Musculoskeletal Musculoskeletal: Reports myalgias Integumentary Denies rash Neurologic Neurologic: Denies paresthesias or weakness Psychiatric Psychiatric: Reports other Details: Hallucinations Endocrine Endocrinology: Denies polydipsia or polyuria Hematologic/Lymphatic Hematologic/Lymphatic: Denies easy bleeding or easy bruising Allergic/Immunologic Allergic/Immunologic ED: Denies urticaria EXAM Physical Exam Const Vital Signs: 02/24/21 00:07 Temperature 97.7 F L Temperature Source Temporal Pulse Rate 60 Respiratory Rate 18 Blood Pressure 127/79 H Blood Pressure Mean 95 Pulse Ox 98 Oxygen Delivery Method Room Air Positive well nourished and well developed Constitutional Narrative: Patient is tearful but otherwise not in physiologic distress General Appearance ED: well developed and NAD HEENT atraumatic; Negative for tenderness Eyes EOMs intact bilaterally General Eye ED: Negative for pale conjunctiva or scleral icterus Neck no lymphadenopathy and supple Chest Wall inspection of chest normal Resp normal respiratory effort and clear to auscultation bilaterally Cardio regular rate, regular rhythm, no murmurs and peripheral pulses 2+ throughout GI soft to palpation, non-tender, non-distended and no masses Extremity General Extremety ED: Negative for edema or tenderness General Extremity: Negative for edema Neuro oriented x3 and no sensory deficits noted Sensorium / Orientation: alert Motor Exam: strength 5/5 throughout Psych mental status grossly normal Psych Narrative: No suicidal homicidal ideations, no signs of hallucinations Skin Lesions: no lesions Rashes: no rashes MDM MDM MDM Narrative Medical decision making narrative: Patient presented secondary to generalized withdrawal type symptoms and requesting detox from opiates and alcohol. I discussed patient's case with hospitalist, patient will be admitted for detox. Patient was medicated in the emergency department. Lab Data Labs: Laboratory Results - last 24 hr 02/24/21 02/24/21 00:35 00:40 WBC 8.9 RBC 5.25 Hgb 14.6 Hct 46.1 MCV 87.8 MCH 27.8 MCHC 31.7 L RDW Std Deviation 42.1 RDW Coeff of Ankita 13.0 Plt Count 283 MPV 10.1 Immature Gran % (Auto) 0.200 Neut % (Auto) 54.0 Lymph % (Auto) 38.8 [place] % (Auto) 5.8 Eos % (Auto) 0.3 Baso % (Auto) 0.9 Absolute Neuts (auto) 4.8 Absolute Lymphs (auto) 3.46 Nucleated RBC % 0 Ur Drug Screen Comment Discharge Plan Triage Chief Complaint: Substance Abuse ED Provider: Frank Almodovar Dx/Rx/DC Orders Clinical Impression: Alcoholism /alcohol abuse, Opiate withdrawal Prescriptions: No Action NK RF: 0 Primary Care Provider: Care Physician,No Primary Referrals: Care Physician,No Primary [Primary Care Provider] - Disposition Disposition: Acute Care Hospital [facility]
--- NOTE | 2021-02-24 00:51 | PCM.HP.STD ---
HPI - General General Date of Admission: 02/24/21 HPI Narrative MAITE TANG, is a 40 M who presents to the hospital for help with withdrawal symptoms. Patient reported that he is withdrawing from fentanyl/heroin so he has been drinking more alcohol to combat the fentanyl/heroin withdrawal. Of note patient was at a hospital on 02/17/2021 and left AMA on 02/20/2021. Reportedly he has been using IV drugs (fentanyl and heroin) for about 15 years. He usually uses about a gram of fentanyl and heroin per day. He reported that ever since he left the hospital he has not been using IV drugs and has been withdrawing. As such he has been combating his opioid withdrawal with alcohol as above. He reports alcoholism for a period of about 20 years. He drinks about 10 shots of vodka per day. He reports withdrawal symptoms of hallucinating where he is seeing shadows. Further he has tremors; restlessness; runny nose; watery eyes; and he has been yawning. [facility] Medical History Alcohol abuse Anxiety Depression Smoker Substance abuse Home Medications NK 02/17/21 [History Last Taken Unknown] Allergy/AdvReac Type Severity Reaction Status Date / Time No Known Allergies Allergy Verified 02/24/21 00:10 Family History Father Heart disease Surgical History History of surgery on extremity Social History household members: none Smoking Status: Current every day smoker tobacco type: e-cigarettes how long ago did patient quit smoking: Patient quit cig tobacco use ~ 1 year prior, 20 pack year history prior. alcohol intake: current details: Reports occasional EtOH intake. Records note 6-8 beers routinely. substance use type: heroin ROS ROS Narrative 12 point review of system is negative except as stated in HPI. Vital Signs Vital Signs Vital Signs: 02/24/21 00:07 Temperature 97.7 F L Temperature Source Temporal Pulse Rate 60 Respiratory Rate 18 Blood Pressure 127/79 H Blood Pressure Mean 95 Pulse Ox 98 Oxygen Delivery Method Room Air Weight Weight: 81.647 kg Body Mass Index (BMI) 23.7 Physical Exam Narrative Physical exam: General: Well-nourished, well-developed, no acute distress Head: Normocephalic, atraumatic, no tenderness Eyes: PERRLA, EOMI ENT, no trauma, moist mucous membranes, no rhinorrhea Neck: Nontender, full range of motion, no spinal tenderness, deformities, step-off CVS: Regular rate and rhythm Respiratory no acute distress, clear to auscultation bilaterally, chest wall nontender, no wheezing Abdomen: Soft, nontender, nondistended, normal bowel sounds, no masses : Deferred Back: Nontender, no CVA tenderness, no midline spinal tenderness, deformities, step-offs Extremities: Nontender full range of motion, no trauma Skin: Normal color, no trauma, abrasions Neuro: Alert, oriented, cranial nerves II through XII grossly intact. Psychiatry: Anxious; and agitated. Results Lab / Micro Data Result Diagrams: 02/24/21 00:40 02/24/21 00:40 Labs: Laboratory Results - last 24 hr 02/24/21 02/24/21 00:35 00:40 WBC 8.9 RBC 5.25 Hgb 14.6 Hct 46.1 MCV 87.8 MCH 27.8 MCHC 31.7 L RDW Std Deviation 42.1 RDW Coeff of Ankita 13.0 Plt Count 283 MPV 10.1 Immature Gran % (Auto) 0.200 Neut % (Auto) 54.0 Lymph % (Auto) 38.8 [place] % (Auto) 5.8 Eos % (Auto) 0.3 Baso % (Auto) 0.9 Absolute Neuts (auto) 4.8 Absolute Lymphs (auto) 3.46 Nucleated RBC % 0 Ur Drug Screen Comment Assessment & Plan Assessment/Plan (1) Alcohol withdrawal delirium, acute, hyperactive: (2) Opiate withdrawal: (3) Active intravenous drug use: PLAN: The patient is a 40 year old M/F with a significant history of IV drug use ; alcohol abuse and tobacco abuse who presents emergency department with opiate withdrawal symptoms. Alcohol dependence and desire for detoxification Patient be started on phenobarbital and other adjunctive medications: Gabapentin as needed; dicyclomine as needed; Vistaril as needed; Imodium as needed; trazodone as needed; Zofran as needed; scheduled thiamine; and schedule folic acid. Monitor CIWA score Opioid dependence and desire for detoxification Subutex and other adjunctive medications ordered Tobacco abuse Counseled Nicotine patch prescribed. DVT prophylaxis Low risk Encourage to ambulate l Charges/Coding Visit Charges Inpatient E&M: 71535 Init Hosp L3
[2021-02-24 01:00] VITALS: BP 125/90; PULSE 60; RESP 18; TEMP 37.2; O2SAT 100
[2021-02-24 01:03] LABS: Amphetamine Urine VISTA NEGATIVE (<1000 ng/mL); Barbiturate Urine VISTA POSITIVE (< 200 ng/mL); Benzodiazepine Urine VISTA NEGATIVE (< 200 ng/mL); Cocaine Urine VISTA NEGATIVE (< 300 ng/mL); Ecstacy Urine VISTA NEGATIVE (< 500 ng/mL); Methadone Urine VISTA NEGATIVE (< 300 ng/mL); PCP Urine VISTA NEGATIVE (< 25 ng/mL); THC Urine VISTA POSITIVE (< 50 ng/mL); Vista UDS pH Range 7
[2021-02-24 01:06] LABS: AST(SGOT) 31 U/L (15-37); Alanine Aminotransfer ALT/SGPT 49 U/L (16-61); Albumin, Serum 4.3 g/dL (3.2-5.0); Alkaline Phosphatase 84 U/L (45-117); Anion Gap 5 (5-15); BUN 11 mg/dL (7-18); BUN/Creat Ratio 10.9 RATIO (10-20); Calcium,Total 9.1 mg/dL (8.5-10.1); Chloride 106 mmol/L (98-107); Creatinine, Serum 1.01 mg/dL (0.70-1.30); EST Glomerular Filtration Rate 87 mL/min (>60); Est Glom Filt Rate - Afr Amer 105 mL/min (>60); Estimated Creatinine Clearance 110.97 ml/min; Globulin 4.1 g/dL (2.2-4.2); Glucose 101 mg/dL (74-106); Potassium 3.8 mmol/L (3.5-5.1); Protein, Total 8.4 g/dL (6.4-8.2); Sodium Level 138 mmol/L (136-145)
[2021-02-24 01:11] LABS: Alcohol, Blood (Medical)-Serum < 3.0 mg/dL
[2021-02-24 01:24] VITALS: BMI 25.0
[2021-02-24 01:33] VITALS: BP 125/83; PULSE 55; RESP 16; TEMP 36.6; O2SAT 100
[2021-02-24] MEDS: Gabapentin 300 MG Capsule PO (01:54)
[2021-02-24] MEDS: Methocarbamol 750 MG Tablet 1500 MG PO (01:54)
[2021-02-24] MEDS: Buprenorphine HCl 2 MG TAB.SUBL 4 MG SL ×2 (01:54→09:18)
[2021-02-24] MEDS: traZODone 100 MG Tablet PO (01:54)
[2021-02-24 05:11] VITALS: BP 99/61; PULSE 60; RESP 18; TEMP 36.3; O2SAT 95
[2021-02-24] MEDS: Folic Acid 1 MG Tablet PO (07:13)
[2021-02-24] MEDS: Thiamine Hydrochloride 100 MG Tablet PO (07:13)
--- NOTE | 2021-02-24 09:06 | PN.HOSP_ITS ---
Subjective Subjective Doing well, no issues overnight, states that he has some restlessness but this has been controlled with his detox medications. Objective Data Objective Data Vital Signs: Vital Signs Temp Pulse Resp BP Pulse Ox 97.4 F L 60 18 99/61 95 02/24/21 05:11 02/24/21 05:11 02/24/21 05:11 02/24/21 05:11 02/24/21 05:11 Oxygen Delivery Method Room Air Weight: 184 lb 11.958 oz Body Mass Index (BMI) 25.0 Intake & Output: Intake and Output for Last 24 Hours 02/23/21 02/24/21 02/25/21 03:59 03:59 03:59 Intake Total 240 / 240 Balance 240 / 240 Lab / Micro Data Result Diagrams: 02/24/21 00:40 02/24/21 00:40 Labs: Laboratory Results - last 24 hr 02/24/21 02/24/21 02/24/21 00:35 00:40 00:40 WBC 8.9 RBC 5.25 Hgb 14.6 Hct 46.1 MCV 87.8 MCH 27.8 MCHC 31.7 L RDW Std Deviation 42.1 RDW Coeff of Ankita 13.0 Plt Count 283 MPV 10.1 Immature Gran % (Auto) 0.200 Neut % (Auto) 54.0 Lymph % (Auto) 38.8 [place] % (Auto) 5.8 Eos % (Auto) 0.3 Baso % (Auto) 0.9 Absolute Neuts (auto) 4.8 Absolute Lymphs (auto) 3.46 Nucleated RBC % 0 Sodium 138 Potassium 3.8 Chloride 106 Carbon Dioxide 27.0 Anion Gap 5 BUN 11 Creatinine 1.01 Estim Creat Clear Calc 110.97 Est GFR (MDRD) Af Amer 105 Est GFR (MDRD) Non-Af 87 BUN/Creatinine Ratio 10.9 Glucose 101 Calcium 9.1 Total Bilirubin 0.30 AST 31 ALT 49 Alkaline Phosphatase 84 Total Protein 8.4 H Albumin 4.3 Globulin 4.1 Albumin/Globulin Ratio 1.0 Urine Opiates Screen NEGATIVE Urine Methadone Screen NEGATIVE Ur Barbiturates Screen POSITIVE H Ur Phencyclidine Scrn NEGATIVE Ur Amphetamines Screen NEGATIVE U Methamphetamin-MDMA NEGATIVE U Benzodiazepines Scrn NEGATIVE Urine Cocaine Screen NEGATIVE U Cannabinoids Screen POSITIVE H Ur Drug Screen Comment Ethyl Alcohol 02/24/21 00:40 WBC RBC Hgb Hct MCV MCH MCHC RDW Std Deviation RDW Coeff of Ankita Plt Count MPV Immature Gran % (Auto) Neut % (Auto) Lymph % (Auto) [place] % (Auto) Eos % (Auto) Baso % (Auto) Absolute Neuts (auto) Absolute Lymphs (auto) Nucleated RBC % Sodium Potassium Chloride Carbon Dioxide Anion Gap BUN Creatinine Estim Creat Clear Calc Est GFR (MDRD) Af Amer Est GFR (MDRD) Non-Af BUN/Creatinine Ratio Glucose Calcium Total Bilirubin AST ALT Alkaline Phosphatase Total Protein Albumin Globulin Albumin/Globulin Ratio Urine Opiates Screen Urine Methadone Screen Ur Barbiturates Screen Ur Phencyclidine Scrn Ur Amphetamines Screen U Methamphetamin-MDMA U Benzodiazepines Scrn Urine Cocaine Screen U Cannabinoids Screen Ur Drug Screen Comment Ethyl Alcohol < 3.0 Physical Exam Const alert, oriented x3 and no apparent distress General Appearance: cooperative HEENT moist oral mucous membranes Head and Scalp: normocephalic Eyes PERRL, EOMs intact bilaterally and conjunctivae normal Neck supple and no JVD Resp normal respiratory effort, no retractions, no use of accessory muscles and clear to auscultation bilaterally Auscultation: Negative for crackles, rales, rhonchi or wheezes Cardio regular rate, regular rhythm, S1 normal heart sound, S2 normal heart sound and no murmurs GI soft to palpation, non-tender and non-distended; Negative for hepatosplenomegaly Extremity no clubbing, cyanosis or edema Skin no rashes or lesions noted Neuro no focal motor deficits and no sensory deficits noted Psych Activity / Motor Behavior: restless Mood & Affect: flat affect Assessment & Plan Assessment/Plan (1) Alcohol withdrawal delirium, acute, hyperactive: (2) Opiate withdrawal: (3) Active intravenous drug use: PLAN: 1. Alcohol withdrawal and opiate withdrawal/tobacco abuse -Continue with both the alcohol and opiate withdrawal protocols -He is okay with following up with 180 as an outpatient -Continue with nicotine patch, discussed cessation DVT: Ambulation Charges/Coding Visit Charges Inpatient E&M: 02797 Subs Hosp L2
--- NOTE | 2021-02-24 09:08 | ADDICTION ---
Addendum entered by Romy Domingo 02/24/21 09:09: This literary writer will attempt to meet with PT on 02/25/21. Original Note: This literary writer attempted to meet with PT. PT declined meeting today but is agreeable to meeting tomorrow to complete required ppwk. This literary writer will attempt to meet with PT on 02/24/21.
[2021-02-24 09:55] VITALS: BP 110/65; PULSE 51; RESP 16; TEMP 36.9; O2SAT 96
== END 2021-02-24 17:41 | disposition left against medical advice (07) | DRG 770 ==
LOC: ED 00:53 → MS3 01:14
PROVIDERS: Admitting Provider Hospitalist; Emergency Provider Emergency Medicine; Visit Provider Family Medicine
DX: F11.23 Opioid dependence with withdrawal (principal); F10.231 Alcohol dependence with withdrawal delirium; F17.290 Nicotine dependence, other tobacco product, uncomplicated
CPT/HCPCS: 80053; 80307; 82077; 85025; 96374; 99218; 99285; A4216; G0378; J2405

== ENCOUNTER 2021-04-05 17:29 | Emergency (ER) | payer MEDICAID, SELFPAY ==
[2021-04-05 17:30] VITALS: BP 129/92; PULSE 78; RESP 16; TEMP 36.6; O2SAT 99; BMI 25.0
--- NOTE | 2021-04-05 18:40 | EDS_ITS ---
HPI History of Present Illness Chief Complaint: Rash Informant: patient and spouse/S.O. Narrative Narrative: 41-year-old male presents emergency room with poison malgorzata. Rash appeared 2 days ago after he was picking strawberries. Spread to his chest arms legs. He notes an area on his face as well. He states he has not had poison malgorzata since he was a child. [facility] Medical History Alcohol abuse Anxiety Depression Smoker Substance abuse Home Medications prednisone See Rx Instructions .ROUTE .COMPLEX #24 tablet 04/05/21 [Rx Last Taken Unknown] Allergy/AdvReac Type Severity Reaction Status Date / Time No Known Allergies Allergy Verified 02/24/21 00:10 Family History Father Heart disease Surgical History History of surgery on extremity Social History household members: none Smoking Status: Current every day smoker tobacco type: e-cigarettes how long ago did patient quit smoking: Patient quit cig tobacco use ~ 1 year prior, 20 pack year history prior. alcohol intake: current details: Reports occasional EtOH intake. Records note 6-8 beers routinely. substance use type: heroin ROS ROS ED Constitutional Constitutional ED: Denies chills or weight loss Eyes Eyes: Denies change in vision or diplopia ENT ENT ED: Denies ear pain, rhinorrhea or sore throat Cardiovascular Cardiovascular: Denies chest pain, orthopnea, palpitations or racing heartbeat Respiratory/Chest Respiratory/Chest: Denies cough, dyspnea or orthopnea Gastrointestinal Gastrointestinal: Denies abdominal pain, diarrhea, nausea or vomiting Genitourinary Genitourinary ED: Denies dysuria, hematuria or urinary frequency Musculoskeletal Musculoskeletal: Denies arthralgias or myalgias Integumentary Reports rash; Denies abscess Neurologic Neurologic: Denies headache(s) or weakness Psychiatric Psychiatric: Denies anxiety, depression, suicidal ideation or suicidal thoughts Endocrine Endocrinology: Denies polydipsia, polyphagia or polyuria Allergic/Immunologic Allergic/Immunologic ED: Denies mouth swelling, tongue swelling or urticaria EXAM Physical Exam Const Vital Signs: 04/05/21 17:30 Temperature 97.8 F Temperature Source Temporal Pulse Rate 78 Respiratory Rate 16 Blood Pressure 129/92 H Blood Pressure Mean 104 Pulse Ox 99 Oxygen Delivery Method Room Air Positive well nourished and well developed General Appearance ED: well developed HEENT Reports normocephalic, head/scalp atraumatic and moist mucous membranes Eyes PERRL and EOMs intact bilaterally Neck no lymphadenopathy, supple and no JVD Resp normal respiratory effort and clear to auscultation bilaterally Cardio regular rate, regular rhythm and no murmurs GI normal to inspection, nondistended, normoactive bowel sounds and non-tender Palpation: soft Back/Spine no CVA tenderness and normal ROM Extremity normal to inspection General Extremety ED: Negative for edema General Extremity: Negative for edema Neuro oriented x3 and CN's II-XII intact bilaterally Sensorium / Orientation: alert Motor Exam: strength 5/5 throughout Psych mental status grossly normal Mood & Affect: Negative for depressed or tearful Skin no wounds Skin Narrative: Patient has a rash on his arms legs torso and face consistent with poison malgorzata. He has calamine lotion on there is some areas that have blistered some are weeping MDM MDM MDM Narrative Medical decision making narrative: Patient will be started on steroids tapering dose over the next 12 days. Benadryl as needed return if worsening or concerns Discharge Plan Triage Chief Complaint: Rash ED Provider: Nestor Miller Dx/Rx/DC Orders Clinical Impression: Contact dermatitis due to poison malgorzata Instructions: ED Poison Malgorzata Rash Prescriptions: New prednisone 20 MG tablet See Rx Instructions .ROUTE .COMPLEX Qty: 24 RF: 0 Primary Care Provider: Care Physician,No Primary Referrals: Vandana Sheppard MD [STAFF PHYSICIAN] - As Needed (for primary care ) Care Physician,No Primary [Primary Care Provider] - Disposition Disposition: Home, Self Care
[2021-04-05] MEDS: Triamcinolone Acetonide 40 MG/ML Vial IM (18:58)
[2021-04-05 19:19] VITALS: PULSE 88; RESP 19; O2SAT 99
== END 2021-04-05 19:19 | disposition home or self-care (01) ==
LOC: ED 18:49
PROVIDERS: Emergency Provider Emergency Medicine
DX: L23.7 Allergic contact dermatitis due to plants, except food (principal); F17.290 Nicotine dependence, other tobacco product, uncomplicated; F10.10 Alcohol abuse, uncomplicated; F11.10 Opioid abuse, uncomplicated
CPT/HCPCS: 96372; 99282

== ENCOUNTER 2023-01-31 03:44 | Observation (INO) | payer MEDICAID, SELFPAY ==
[2023-01-31 03:45] VITALS: BP 135/96; PULSE 100; RESP 17; TEMP 36.2; O2SAT 99; BMI 20.9
[2023-01-31 04:10] LABS: Absolute Lymphocyte Count 2.09 X10^3/uL (0.83-4.51); Absolute Neutrophil Count 6.4 X10^3/uL (2.0-7.7); Basophil# 0.07 X10^3/uL; Basophil% 0.8 % (0-1); Eosinophil# 0.01 X10^3/uL; Eosinophils% 0.1 % (0-5); Hematocrit 41.9 % (40-54); Hemoglobin 12.9 g/dL (13.0-16.5); Lymphocyte # 2.09 X10^3/ul (0.83-4.51); Mean Corp Hgb Conc 30.8 g/dL (32-36); Mean Corpuscular Volume 87.7 fL (80-94); Mean Platelet Vol. 9.9 fl (6.2-12.0); Monocyte# 0.48 X10^3/uL; Monocyte% 5.3 % (0-10); NRBC Flagged by Analyzer 0 % (0-5); Neutrophil # 6.43 X10^3/uL (2.7-7.7); Neutrophil % 70.6 % (47-70); Platelet Count 288 K/mm3 (150-450); RBC Distribution Width CV 13.5 % (11.6-14.6); RBC Distribution Width SD 43.7 fl (35.1-43.9); Red Blood Count 4.78 M/mm3 (4.6-6.2); White Blood Count 9.1 K/mm3 (4.4-11.0)
[2023-01-31 04:40] LABS: Amphetamine Urine VISTA POSITIVE (<1000 ng/mL); Barbiturate Urine VISTA NEGATIVE (< 200 ng/mL); Benzodiazepine Urine VISTA NEGATIVE (< 200 ng/mL); Cocaine Urine VISTA NEGATIVE (< 300 ng/mL); Ecstacy Urine VISTA POSITIVE (< 500 ng/mL); Methadone Urine VISTA NEGATIVE (< 300 ng/mL); PCP Urine VISTA NEGATIVE (< 25 ng/mL); THC Urine VISTA POSITIVE (< 50 ng/mL); Vista UDS pH Range 7
[2023-01-31 04:40] LABS: Anion Gap 8 (5-15); BUN 16 mg/dL (7-18); BUN/Creat Ratio 16.4 RATIO (10-20); Calcium,Total 9.2 mg/dL (8.5-10.1); Chloride 105 mmol/L (98-107); Creatinine, Serum 0.98 mg/dL (0.70-1.30); EST Glomerular Filtration Rate 89 mL/min (>60); Est Glom Filt Rate - Afr Amer 108 mL/min (>60); Estimated Creatinine Clearance 98.07 ml/min; Glucose 105 mg/dL (74-106); Potassium 3.9 mmol/L (3.5-5.1); Sodium Level 136 mmol/L (136-145)
--- NOTE | 2023-01-31 04:42 | EKG12_ITS ---
Test Reason : MHC Blood Pressure : / mmHG Vent. Rate : 053 BPM Atrial Rate : 053 BPM P-R Int : 144 ms QRS Dur : 094 ms QT Int : 484 ms P-R-T Axes : 080 071 068 degrees QTc Int : 454 ms Sinus bradycardia with marked sinus arrhythmia Otherwise normal ECG Confirmed by DEISY BILLS, GABRIEL ([id number]), supervising editor trailer PAM SAHU ([id number]) on 02/01/2023 9:01:17 AM Referred By: GOYO Confirmed By:MARICEL OLIVAS MD
[2023-01-31] MEDS: LORazepam 2 MG/ML Syringe IV (04:51)
[2023-01-31 04:57] LABS: Magnesium 2.3 mg/dL (1.6-2.6)
[2023-01-31] MEDS: 0.9% Normal Saline 1,000 ML 999 ML IV (04:58)
[2023-01-31 05:01] LABS: Alcohol, Blood (Medical)-Serum < 3.0 mg/dL
[2023-01-31] MEDS: chlordiazePOXIDE 25 MG Capsule PO (05:18)
--- NOTE | 2023-01-31 05:35 | HP.PCM.HOS_ITS ---
HPI - General General Date of Admission: 01/31/23 Date of Service: 01/31/23 Chief Complaint: Desire for detoxification HPI Narrative MAITE TANG, is a 42 M with a significant history of alcoholism and polysubstance abuse who presented to the emergency department for help with detoxification . Patient drinks alcohol, use meth and heroin. Alcoholism: He reports drinking 12 beers a day. He has been drinking all his life and has had short periods of sobriety. Last time he drank was about 2 days prior to presentation. Heroin : Reportedly he has been using about $120 of heroin per day. He shoots them. Methamphetamine: He reports a sprinkling a few methamphetamine to make speed ball. Last time he used heroin and methamphetamine was 2 days ago. He voluntarily decided to stop using all above drugs or alcohol. He reports withdrawal symptoms of nausea, vomiting, diarrhea, abdominal pain, and palpitations. He called paramedics who brought him to emergency department. At the emergency point patient was noted to be pacing. [facility] Medical History Alcohol abuse Anxiety Depression Smoker Substance abuse Home Medications NK 01/31/23 [History Last Taken Unknown] Allergy/AdvReac Type Severity Reaction Status Date / Time No Known Allergies Allergy Verified 01/31/23 03:46 Family History Father Heart disease Surgical History History of surgery on extremity Social History household members: none Smoking Status: Current every day smoker tobacco type: e-cigarettes how long ago did patient quit smoking: Patient quit cig tobacco use ~ 1 year prior, 20 pack year history prior. alcohol intake: current details: Reports occasional EtOH intake. Records note 6-8 beers routinely. substance use type: heroin ROS Review of Systems ROS Unobtainable: due to mental status Vital Signs Vital Signs Vital Signs: 01/31/23 03:45 Temperature 97.2 F L Temperature Source Temporal Pulse Rate 100 Respiratory Rate 17 Blood Pressure 135/96 H Blood Pressure Mean 109 Pulse Ox 99 Oxygen Delivery Method Room Air Weight Weight: 69.9 kg Body Mass Index (BMI) 20.9 Physical Exam Narrative Physical exam: General: Well-nourished, well-developed. Head: Normocephalic, atraumatic, no tenderness Eyes: Vision is grossly intact. EOMI ENT, no trauma, moist mucous membranes. Has rhinorrhea Neck: Nontender, No thyromegaly. CVS: Regular rate and rhythm. S1-S2 present. No murmur, gallop or rub. Respiratory : clear to auscultation bilaterally, chest wall nontender Abdomen: Soft, nontender, nondistended, normal bowel sounds, no masses : Deferred Back: Nontender, no CVA tenderness, no midline spinal tenderness, deformities, step-offs Extremities: Nontender full range of motion, no trauma Skin: Normal color, no trauma, abrasions Neuro: Hyperalert, cranial nerves II through XII grossly intact. Psychiatry: Pacing, jittery Results Lab / Micro Data Result Diagrams: 01/31/23 04:05 01/31/23 04:05 Labs: Laboratory Results - last 24 hr 01/31/23 00:45: Magnesium 2.3 01/31/23 03:55: Urine Opiates Screen NEGATIVE, Urine Methadone Screen NEGATIVE, Ur Barbiturates Screen NEGATIVE, Ur Phencyclidine Scrn NEGATIVE, Ur Amphetamines Screen POSITIVE H, MDMA (Ecstasy) Screen POSITIVE H, U Benzodiazepines Scrn NEGATIVE, Urine Cocaine Screen NEGATIVE, U Cannabinoids Screen POSITIVE H, Ur Drug Screen Comment 01/31/23 04:05: WBC 9.1, RBC 4.78, Hgb 12.9 L, Hct 41.9, MCV 87.7, MCH 27.0, MCHC 30.8 L, RDW Std Deviation 43.7, RDW Coeff of Ankita 13.5, Plt Count 288, MPV 9.9, Immature Gran % (Auto) 0.200, Neut % (Auto) 70.6 H, Lymph % (Auto) 23.0, [place] % (Auto) 5.3, Eos % (Auto) 0.1, Baso % (Auto) 0.8, Absolute Neuts (auto) 6.4, Absolute Lymphs (auto) 2.09, Nucleated RBC % 0 01/31/23 04:05: Sodium 136, Potassium 3.9, Chloride 105, Carbon Dioxide 23.0, Anion Gap 8, BUN 16, Creatinine 0.98, Estim Creat Clear Calc 98.07, Est GFR (MDRD) Af Amer 108, Est GFR (MDRD) Non-Af 89, BUN/Creatinine Ratio 16.4, Glucose 105, Calcium 9.2 01/31/23 04:05: Ethyl Alcohol < 3.0 Assessment & Plan Assessment/Plan (1) Polysubstance abuse: (2) Desire for detoxification: (3) Alcohol withdrawal delirium, acute, hyperactive: (4) Opiate withdrawal: (5) IVDU (intravenous drug user): (6) Alcoholism /alcohol abuse: PLAN: Plan Alcohol dependence; withdrawal and desire for detoxification Ethyl alcohol level less than 3 Patient be started on phenobarbital and other adjunctive medications: Gabapentin as needed; dicyclomine as needed; Vistaril as needed; Imodium as needed; trazodone as needed; Zofran as needed; scheduled thiamine; and schedule folic acid. Monitor CIWA score Opioid dependence and withdrawal Urine drug screen positive for amphetamine, ecstasy and cannabinoids. Patient be started on Subutex and other adjunctive medications: Gabapentin as needed; dicyclomine as needed; Vistaril as needed; methocarbamol as needed; clonidine as needed; Imodium as needed; trazodone as needed and Zofran as needed. Monitor COWS and CINA score Methamphetamine abuse Counseled Tobacco abuse Counseled Nicotine gum prescribed DVT prophylaxis Low risk Encourage to ambulate Charges/Coding Visit Charges Inpatient E&M: 32780 Init Hosp L2
--- NOTE | 2023-01-31 05:43 | EX.ED.DYSGE1 ---
HPI History of Present Illness Chief Complaint: Substance Abuse Narrative Narrative: Patient is a 42-year-old male with past medical history of heroin and methamphetamine and alcohol abuse. He states that for the past year he will inject methamphetamines and heroin approximately 4 times a day. He states he will also drink typically a 12 pack of beer per day. He states he has decided that he does not want to do this any longer and is requesting detox. He states that he has not used any heroin methamphetamine or alcohol for approximately 2 days and now he is feeling anxious and jittery nauseated and having loose stool he is concerned he is going through withdrawals and secondary to this comes in for evaluation [facility] Medical History Alcohol abuse Anxiety Depression Smoker Substance abuse Home Medications NK 01/31/23 [History Last Taken Unknown] Allergy/AdvReac Type Severity Reaction Status Date / Time No Known Allergies Allergy Verified 01/31/23 03:46 Family History Father Heart disease Surgical History History of surgery on extremity Social History household members: none Smoking Status: Current every day smoker tobacco type: e-cigarettes how long ago did patient quit smoking: Patient quit cig tobacco use ~ 1 year prior, 20 pack year history prior. alcohol intake: current details: Reports occasional EtOH intake. Records note 6-8 beers routinely. substance use type: heroin ROS ROS ED Constitutional Constitutional ED: Denies chills or fever(s) Eyes Eyes: Denies change in vision ENT ENT ED: Denies sore throat Cardiovascular Cardiovascular: Reports palpitations and racing heartbeat; Denies chest pain Respiratory/Chest Respiratory/Chest: Denies cough or dyspnea Gastrointestinal Gastrointestinal: Reports diarrhea and nausea; Denies abdominal pain or vomiting Genitourinary Genitourinary ED: Denies dysuria Musculoskeletal Musculoskeletal: Reports myalgias Integumentary Denies rash Neurologic Neurologic: Denies headache(s) Psychiatric Psychiatric: Reports anxiety Hematologic/Lymphatic Hematologic/Lymphatic: Denies easy bleeding or easy bruising EXAM Physical Exam Const Vital Signs: 01/31/23 03:45 Temperature 97.2 F L Temperature Source Temporal Pulse Rate 100 Respiratory Rate 17 Blood Pressure 135/96 H Blood Pressure Mean 109 Pulse Ox 99 Oxygen Delivery Method Room Air Positive well developed and unkempt General Appearance ED: unkempt and well developed HEENT Reports dry mucous membranes Mouth ED: Yes dry mucous membranes Mouth: dry mucous membranes Eyes PERRL and EOMs intact bilaterally General Eye ED: Negative for scleral icterus Neck supple Resp normal respiratory effort and clear to auscultation bilaterally Cardio regular rate and regular rhythm GI non-tender and non-distended Auscultation: hyperactive bowel sounds Palpation: soft Extremity normal to inspection Neuro oriented x3 and CN's II-XII intact bilaterally Sensorium / Orientation: alert Psych Psych Narrative: Patient has a nervous/anxious affect but denies homicidal or suicidal ideation Appearance: unkempt Skin no rashes or lesions noted General Skin Exam: Negative for jaundice MDM MDM MDM Narrative Medical decision making narrative: Patient presented to the ER hypertensive otherwise with stable vitals. He reports that he has been using the polysubstance for over a year and has not used for approximately 2 days. His clinical presentation of anxiety with nausea and loose stool is most consistent with withdrawal. Secondary to this basic laboratory studies were obtained and he was started on normal saline as well as Ativan and Librium to prevent withdrawal symptoms. His lab work showed positive for methamphetamines ecstasy and cannabis consistent with his use and alcohol was negative correlating with the fact he reports 2 days without ingestion. At this time he is not in delirium tremens but he is showing changes concerning for acute withdrawal symptoms and therefore he will be admitted to the hospitalist service for further treatment of his polysubstance abuse and alcohol withdrawal. History & Record Review Discussion w/independent historian: EMS personnel and Patient Lab Data Attestation: I reviewed the patient's lab results. Labs: Laboratory Results - last 24 hr 01/31/23 01/31/23 01/31/23 00:45 03:55 04:05 WBC 9.1 RBC 4.78 Hgb 12.9 L Hct 41.9 MCV 87.7 MCH 27.0 MCHC 30.8 L RDW Std Deviation 43.7 RDW Coeff of Ankita 13.5 Plt Count 288 MPV 9.9 Immature Gran % (Auto) 0.200 Neut % (Auto) 70.6 H Lymph % (Auto) 23.0 [place] % (Auto) 5.3 Eos % (Auto) 0.1 Baso % (Auto) 0.8 Absolute Neuts (auto) 6.4 Absolute Lymphs (auto) 2.09 Nucleated RBC % 0 Sodium Potassium Chloride Carbon Dioxide Anion Gap BUN Creatinine Estim Creat Clear Calc Est GFR (MDRD) Af Amer Est GFR (MDRD) Non-Af BUN/Creatinine Ratio Glucose Calcium Magnesium 2.3 Urine Opiates Screen NEGATIVE Urine Methadone Screen NEGATIVE Ur Barbiturates Screen NEGATIVE Ur Phencyclidine Scrn NEGATIVE Ur Amphetamines Screen POSITIVE H MDMA (Ecstasy) Screen POSITIVE H U Benzodiazepines Scrn NEGATIVE Urine Cocaine Screen NEGATIVE U Cannabinoids Screen POSITIVE H Ur Drug Screen Comment Ethyl Alcohol 01/31/23 01/31/23 04:05 04:05 WBC RBC Hgb Hct MCV MCH MCHC RDW Std Deviation RDW Coeff of Ankita Plt Count MPV Immature Gran % (Auto) Neut % (Auto) Lymph % (Auto) [place] % (Auto) Eos % (Auto) Baso % (Auto) Absolute Neuts (auto) Absolute Lymphs (auto) Nucleated RBC % Sodium 136 Potassium 3.9 Chloride 105 Carbon Dioxide 23.0 Anion Gap 8 BUN 16 Creatinine 0.98 Estim Creat Clear Calc 98.07 Est GFR (MDRD) Af Amer 108 Est GFR (MDRD) Non-Af 89 BUN/Creatinine Ratio 16.4 Glucose 105 Calcium 9.2 Magnesium Urine Opiates Screen Urine Methadone Screen Ur Barbiturates Screen Ur Phencyclidine Scrn Ur Amphetamines Screen MDMA (Ecstasy) Screen U Benzodiazepines Scrn Urine Cocaine Screen U Cannabinoids Screen Ur Drug Screen Comment Ethyl Alcohol < 3.0 Management Discussion w/another healthcare provider: Hospitalist Discharge Plan Dx/Rx/DC Orders Clinical Impression: Polysubstance abuse, Alcoholism /alcohol abuse, Desire for detoxification Disposition Disposition: Acute Care Hospital [facility] Discharge Date/Time: 01/31/23 06:31
[2023-01-31 06:28] VITALS: BP 130/70; PULSE 87; RESP 16; TEMP 36.6; O2SAT 98
[2023-01-31 06:43] VITALS: BMI 20.9
[2023-01-31 06:51] VITALS: BP 139/123; PULSE 117; RESP 18; TEMP 36.6; O2SAT 99
[2023-01-31] MEDS: Gabapentin 300 MG Capsule PO (07:25)
[2023-01-31] MEDS: Phenobarbital 32.4 MG Tablet 97.2 MG PO (07:25)
[2023-01-31] MEDS: Ondansetron 8 MG Tablet PO (07:25)
[2023-01-31] MEDS: Methocarbamol 750 MG Tablet 1500 MG PO (07:25)
[2023-01-31 07:35] VITALS: PULSE 80
[2023-01-31] MEDS: Thiamine Hydrochloride 100 MG Tablet PO (07:47)
[2023-01-31] MEDS: Buprenorphine HCl 2 MG TAB.SUBL 4 MG SL (07:47)
[2023-01-31] MEDS: Folic Acid 1 MG Tablet PO (07:47)
--- NOTE | 2023-01-31 09:06 | NURSING ---
pt left AMA, paper signed.
--- NOTE | 2023-01-31 09:07 | NURSING ---
Pt very anxious and restless, decided to leave AMA, pt was informed he could black pickler his jacket at security in ER when he is ready to pick it up.
--- NOTE | 2023-01-31 14:10 | NURSING ---
patient pants, shirt and sweatshirt were taken to rehab to launder - they were soaking wet from the rain. Patient did not want to wait for laundry to be dry before leaving. Left clothing, pocket knife and director of institutional giving behind. Items placed in security office. Patient was told when he left that is where they would be if he decided to pick them up.
--- NOTE | 2023-01-31 16:39 | PCM.DC.SUM ---
Providers Date of Admission: 01/31/23 Date of Discharge: 01/31/23 Primary Care Physician: No Primary Care Phys Reason For Visit: DESIRE FOR DETOXIFICATION Diagnosis Discharge Diagnosis (1) Polysubstance abuse: Status: Acute Code(s): F19.10 - Other psychoactive substance abuse, uncomplicated (2) Desire for detoxification: Status: Acute (3) Alcohol withdrawal delirium, acute, hyperactive: Status: Acute Code(s): F10.231 - Alcohol dependence with withdrawal delirium (4) Opiate withdrawal: Status: Acute Code(s): F11.23 - Opioid dependence with withdrawal (5) IVDU (intravenous drug user): Status: Chronic Code(s): F19.90 - Other psychoactive substance use, unspecified, uncomplicated (6) Alcoholism /alcohol abuse: Status: Chronic Code(s): F10.20 - Alcohol dependence, uncomplicated Medications at Discharge Home Medications NK 01/31/23 Hospital Course Operations None Procedures None Summary of Care Provided Minutes Spent on Discharge: 35 Hospital Course: Patient is a 42-year-old male with a past medical history as outlined which includes chronic alcohol abuse and polysubstance abuse. He was admitted through the ED for help with alcohol and heroin detox. Patient uses alcohol and uses methamphetamines as well as heroin. He drinks 12 cans of beer a day. He had been drinking all his life. He also used about 1 $20 worth of heroin every day and used it IV. He last used heroin and methamphetamine 2 days prior to admission. He came in for acute alcohol and opioid withdrawal. He was admitted and managed for acute alcohol and opioid withdrawal. He was started on alcohol and opioid withdrawal protocols with phenobarbital and buprenorphine respectively. Patient however signed out AGAINST MEDICAL ADVICE a few hours after admission, on the morning of 01/31/2023. This hospitalist could not see patient before he left AGAINST MEDICAL ADVICE. Patient was therefore not examined prior to him leaving AGAINST MEDICAL ADVICE. Physical Exam Narrative not examined as he left against medical advice before he could be evaluated. Weight / BMI Weight Weight: 155 lb Body Mass Index (BMI) 20.9 ABG / Lab / Microbiology Data Result Diagrams: 01/31/23 04:05 01/31/23 04:05 Laboratory: Laboratory Results - last 24 hr 01/31/23 00:45: Magnesium 2.3 01/31/23 03:55: Urine Opiates Screen NEGATIVE, Urine Methadone Screen NEGATIVE, Ur Barbiturates Screen NEGATIVE, Ur Phencyclidine Scrn NEGATIVE, Ur Amphetamines Screen POSITIVE H, MDMA (Ecstasy) Screen POSITIVE H, U Benzodiazepines Scrn NEGATIVE, Urine Cocaine Screen NEGATIVE, U Cannabinoids Screen POSITIVE H, Ur Drug Screen Comment 01/31/23 04:05: WBC 9.1, RBC 4.78, Hgb 12.9 L, Hct 41.9, MCV 87.7, MCH 27.0, MCHC 30.8 L, RDW Std Deviation 43.7, RDW Coeff of Ankita 13.5, Plt Count 288, MPV 9.9, Immature Gran % (Auto) 0.200, Neut % (Auto) 70.6 H, Lymph % (Auto) 23.0, [place] % (Auto) 5.3, Eos % (Auto) 0.1, Baso % (Auto) 0.8, Absolute Neuts (auto) 6.4, Absolute Lymphs (auto) 2.09, Nucleated RBC % 0 01/31/23 04:05: Sodium 136, Potassium 3.9, Chloride 105, Carbon Dioxide 23.0, Anion Gap 8, BUN 16, Creatinine 0.98, Estim Creat Clear Calc 98.07, Est GFR (MDRD) Af Amer 108, Est GFR (MDRD) Non-Af 89, BUN/Creatinine Ratio 16.4, Glucose 105, Calcium 9.2 01/31/23 04:05: Ethyl Alcohol < 3.0 D/C Instructions Discharge Diet: No restrictions Meaningful Use Info Meaningful Use Diagnoses (Choose all that apply): None applicable Discharge Plan Admission Admit Date/Time: 01/31/23 05:46 Attending Provider: Margarita Naqvi Primary Care Provider: Care Physician,No Primary Consulting Providers: Cam Sorto Discharge Orders/Prescriptions Prescriptions: No Action NK Referrals / Follow Up: Care Physician,No Primary [Primary Care Provider] - Disposition Disposition (needs filled in before D/C Order can be placed): Against Medical Advice Charges/Coding Visit Charges Inpatient E&M: 23924 Disch Hosp >30min
== END 2023-01-31 09:06 | disposition left against medical advice (07) ==
LOC: ED 05:44 → MS3 05:59
PROVIDERS: Admitting Provider Hospitalist; Emergency Provider Emergency Medicine; Visit Provider Student in an Organized Health Care Education/Training Program
DX: F11.23 Opioid dependence with withdrawal (principal); F10.231 Alcohol dependence with withdrawal delirium; F15.10 Other stimulant abuse, uncomplicated; F17.290 Nicotine dependence, other tobacco product, uncomplicated
CPT/HCPCS: 80048; 80307; 82077; 83735; 85025; 93005; 96361; 96374; 99221; 99285; A4216; G0378

== ENCOUNTER 2023-08-28 02:45 | Emergency (ER) | payer MEDICAID, SELFPAY ==
[2023-08-28 02:46] VITALS: BP 141/87; PULSE 79; RESP 18; TEMP 36.6; O2SAT 100; BMI 28.3
--- NOTE | 2023-08-28 02:55 | EDS_ITS ---
HPI History of Present Illness Chief Complaint: Nausea/Vomiting Informant: patient Onset/Context/Timing Context: Gradual Onset Narrative Narrative: Patient presents secondary to nausea and vomiting. Patient states that he thought he had a fever at home tonight had some bodyaches with back pain. He started vomiting about an hour prior to calling EMS. He states now that he is here he started to feel better and he does not have a temperature here. He has not had cough or congestion. Nursing notes do document patient took fentanyl an hour before his vomiting started tonight. [facility] Medical History Alcohol abuse Alcohol withdrawal delirium, acute, hyperactive Alcoholism /alcohol abuse Anxiety Depression Desire for detoxification IVDU (intravenous drug user) Opiate withdrawal Polysubstance abuse Smoker Substance abuse Home Medications NK 01/31/23 [History Last Taken Unknown] Allergy/AdvReac Type Severity Reaction Status Date / Time No Known Allergies Allergy Verified 08/28/23 02:49 Family History Father Heart disease Surgical History History of surgery on extremity Social History household members: none Smoking Status: Current every day smoker tobacco type: e-cigarettes how long ago did patient quit smoking: Patient quit cig tobacco use ~ 1 year prior, 20 pack year history prior. alcohol intake: current details: Reports occasional EtOH intake. Records note 6-8 beers routinely. substance use type: heroin ROS ROS ED Constitutional Constitutional ED: Reports fever(s) and subjective; Denies chills Eyes Eyes: Denies change in vision or discharge from eye(s) ENT ENT ED: Denies discharge from eye(s), rhinorrhea or sore throat Cardiovascular Cardiovascular: Denies chest pain or palpitations Respiratory/Chest Respiratory/Chest: Denies cough or dyspnea Gastrointestinal Gastrointestinal: Reports nausea and vomiting; Denies diarrhea Genitourinary Genitourinary ED: Denies dysuria Musculoskeletal Musculoskeletal: Reports back pain and myalgias; Denies extremity pain Integumentary Denies Abrasions or rash Neurologic Neurologic: Denies headache(s) or weakness Psychiatric Psychiatric: Denies anxiety or depression Allergic/Immunologic Allergic/Immunologic ED: Denies lip swelling or urticaria EXAM Physical Exam Const Vital Signs: 08/28/23 02:46 Temperature 98 F Temperature Source Temporal Pulse Rate 79 Respiratory Rate 18 Blood Pressure 141/87 H Blood Pressure Mean 105 Pulse Ox 100 Oxygen Delivery Method Room Air Positive well nourished and well developed General Appearance ED: well developed HEENT Reports moist mucous membranes Eyes EOMs intact bilaterally Chest Wall inspection of chest normal and palpation of chest normal Resp normal respiratory effort and clear to auscultation bilaterally Cardio regular rate and regular rhythm GI non-tender Auscultation: hypoactive bowel sounds Palpation: soft Extremity normal to inspection Neuro Neuro Narrative: Patient rests with eyes closed but answers questions appropriately. No focal neurologic deficit. Psych Psych Narrative: Flat affect Skin no rashes or lesions noted MDM MDM MDM Narrative Medical decision making narrative: Patient states that he wants to wait about 20 minutes to see if his symptoms subside without any treatment. When nursing staff went back and rechecked the patient a couple times, he states that he is feeling better and does not think he wants any treatment in the emergency room. He states he will call a taxi for a ride home. He understands that he can return at any time. Discharge Plan Triage Chief Complaint: Nausea/Vomiting ED Provider: Romy Umanzor Dx/Rx/DC Orders Clinical Impression: Myalgia, Vomiting Instructions: ED Myalgias, ED Vomiting (Adult) Prescriptions: No Action NK Primary Care Provider: Care Physician,No Primary Referrals: Jennifer Ryan MD [Med Staff - [employer]roider[employer] Patternmaker] - As Needed Care Physician,No Primary [Primary Care Provider] - Disposition Disposition: Home, Self Care
[2023-08-28 03:48] VITALS: PULSE 83; RESP 16; O2SAT 96
== END 2023-08-28 03:48 | disposition home or self-care (01) ==
PROVIDERS: Emergency Provider Emergency Medicine; Visit Provider Emergency Medicine
DX: M79.10 Myalgia, unspecified site (principal); R11.2 Nausea with vomiting, unspecified; F17.290 Nicotine dependence, other tobacco product, uncomplicated
CPT/HCPCS: 99282

== ENCOUNTER 2024-04-17 06:00 | Observation (INO) | payer MEDICAID, SELFPAY ==
[2024-04-17 06:01] VITALS: TEMP 36.6; BMI 28.0
[2024-04-17 06:05] VITALS: BP 108/72; PULSE 69; RESP 24
--- NOTE | 2024-04-17 06:19 | EDS_ITS ---
HPI History of Present Illness Chief Complaint: Overdose Informant: patient and EMS Narrative Narrative: Patient is a 44-year-old male who presents secondary to polysubstance abuse and desire for detoxification. He states that he uses opioids mainly heroin and fe ntanyl and that he injects himself for this. He states that he will use every day and typically 1 g a day. He also reports that he drinks 2 tall boys daily. He states that he feels he may be in withdrawal as he feels anxious and nauseous and tired and agitated and he states that he bought illicit drugs and use them without the desired effect and he assumes that he was not given the right drug. With concern for progression to severe withdrawal he called EMS. EMS states that he walked out and met them at the vehicle and they did give him 1 mg of intranasal Narcan because he reported doing fentanyl however he was not unresponsive or having respiratory distress per EMS as well. [facility] Medical History Desire for detoxification Polysubstance abuse Alcohol withdrawal delirium, acute, hyperactive Opiate withdrawal Alcohol abuse Anxiety Depression Smoker Substance abuse Alcoholism /alcohol abuse IVDU (intravenous drug user) Home Medications ?Medication ?Instructions ?Recorded ?Last Taken ?Type NK 01/31/23 Unknown History Allergy/AdvReac Type Severity Reaction Status Date / Time No Known Allergies Allergy Verified 08/28/23 02:49 Family History Father Heart disease Surgical History History of surgery on extremity Social History household members: none Smoking Status: Current every day smoker tobacco type: e-cigarettes how long ago did patient quit smoking: Patient quit cig tobacco use ~ 1 year prior, 20 pack year history prior. alcohol intake: current details: Reports occasional EtOH intake. Records note 6-8 beers routinely. substance use type: heroin ROS ROS ED Constitutional Constitutional ED: Denies chills or fever(s) Eyes Eyes: Denies blurry vision or change in vision ENT ENT ED: Denies sore throat Cardiovascular Cardiovascular: Denies chest pain Respiratory/Chest Respiratory/Chest: Reports dyspnea; Denies cough Gastrointestinal Gastrointestinal: Reports abdominal pain and nausea; Denies diarrhea or vomiting Genitourinary Genitourinary ED: Denies dysuria Musculoskeletal Musculoskeletal: Reports myalgias Integumentary Denies rash Neurologic Neurologic: Reports headache(s) and weakness Psychiatric Psychiatric: Reports anxiety; Denies suicidal ideation or suicidal thoughts Hematologic/Lymphatic Hematologic/Lymphatic: Denies easy bleeding or easy bruising EXAM Physical Exam Const Vital Signs: 04/17/24 06:01 04/17/24 06:05 Temperature 97.9 F Temperature Source Oral Pulse Rate 69 Respiratory Rate 24 H Blood Pressure 108/72 Blood Pressure Mean 84 Oxygen Delivery Method Room Air Positive well nourished and well developed General Appearance ED: well developed; Negative for pallor HEENT Reports dry mucous membranes HEENT Narrative: Mucous membranes are dry and tacky No tongue or lip swelling no oral lesions no airway edema or compromise No tongue or cheek biting noted No secondary findings to suggest infection Mouth ED: Yes dry mucous membranes Mouth: dry mucous membranes Eyes EOMs intact bilaterally Eyes Narrative: Pupils are constricted and sluggish to respond to light consistent with opioid use. Neck supple Neck Narrative: No nuchal rigidity or meningeal signs Chest Wall palpation of chest normal Resp clear to auscultation bilaterally Resp Narrative: Patient is tachypneic and breath sounds are diminished throughout but overall clear to auscultation. No nasal flaring retractions or accessory muscle use. No obvious rales wheezes or rhonchi noted. Cardio regular rate and regular rhythm Rate: other Other Details: Heart is regular rate and rhythm without murmur rubs or gallops Radial and carotid pulses are equal and symmetric GI non-tender, non-distended and no masses GI Narrative: Abdomen is soft nontender and nondistended with hypoactive bowel sounds. No voluntary guarding or rigidity or pulsatile mass Auscultation: hypoactive bowel sounds Palpation: soft Extremity Extremity Narrative: Patient has track ramos in the bilateral antecubital region consistent with his report of IV drug use. No obvious findings to suggest cellulitis or abscess. No splinter hemorrhages or [place] lesions to suggest endocarditis. Neuro oriented x3 and CN's II-XII intact bilaterally Sensorium / Orientation: alert Psych Psych Narrative: Patient has a nervous/anxious affect Skin Skin Narrative: Soft tissue changes to the bilateral antecubital regions as document above consistent with IV drug use General Skin Exam: Negative for jaundice or pallor MDM MDM MDM Narrative Medical decision making narrative: Patient arrived to the ER mildly tachypneic but otherwise with stable vitals. He reported a longstanding history of IV opioid use as well as alcohol use. He states that he has the sensation that he is going through withdrawal even though he used drugs earlier today but he feels that he most likely did not receive what he was trying to buy. He is requesting placement in the ramp program at this time for polysubstance abuse and detoxification. He states he has been through it in the past and chart review reveals that he was admitted roughly 1 year ago in January 2023 but then signed out roughly 4 hours after admission. He returns today with continued alcohol and opioid use. He is presenting as the onset of withdrawal. Therefore hoping provided Ativan and clonidine to help with this. A medical screening exam will be performed as needed for ramp admission. He does have track ramos in bilateral arms but no obvious signs of infection and there is no murmur or splinter hemorrhages to suggest endocarditis. Therefore once patient has been medically cleared medicine will be contacted to discuss placement back in the ramp program. History & Record Review Discussion w/independent historian: EMS personnel and Patient Lab Data Labs: Laboratory Results - last 24 hr 04/17/24 04/17/24 06:30 06:45 WBC 8.2 RBC 5.84 Hgb 16.4 Hct 51.2 MCV 87.7 MCH 28.1 MCHC 32.0 RDW Std Deviation 44.2 H RDW Coeff of Ankita 13.9 Plt Count 285 MPV 10.2 Immature Gran % (Auto) 0.200 Neut % (Auto) 72.2 H Lymph % (Auto) 21.4 [place] % (Auto) 5.2 Eos % (Auto) 0.4 Baso % (Auto) 0.6 Absolute Neuts (auto) 5.9 Absolute Lymphs (auto) 1.76 Nucleated RBC % 0 Ur Drug Screen Comment Management Discussion w/another healthcare provider: Hospitalist Discharge Plan Dx/Rx/DC Orders Clinical Impression: Polysubstance abuse, Desire for detoxification, Opioid abuse with withdrawal, Alcohol withdrawal Disposition Disposition: Acute Care Hospital [facility]
[2024-04-17] MEDS: LORazepam 1 MG Tablet 2 MG PO (06:53)
[2024-04-17 07:07] LABS: Absolute Lymphocyte Count 1.76 X10^3/uL (0.83-4.51); Absolute Neutrophil Count 5.9 X10^3/uL (2.0-7.7); Basophil# 0.05 X10^3/uL; Basophil% 0.6 % (0-1); Eosinophil# 0.03 X10^3/uL; Eosinophils% 0.4 % (0-5); Hematocrit 51.2 % (40-54); Hemoglobin 16.4 g/dL (13.0-16.5); Lymphocyte # 1.76 X10^3/ul (0.83-4.51); Lymphocyte % 21.4 % (19-41); Mean Corpuscular Hgb 28.1 pg (27.0-32.0); Mean Corpuscular Volume 87.7 fL (80-94); Mean Platelet Vol. 10.2 fl (6.2-12.0); Monocyte# 0.43 X10^3/uL; Monocyte% 5.2 % (0-10); NRBC Flagged by Analyzer 0 % (0-5); Neutrophil # 5.93 X10^3/uL (2.7-7.7); Neutrophil % 72.2 % (47-70); Platelet Count 285 K/mm3 (150-450); RBC Distribution Width CV 13.9 % (11.6-14.6); RBC Distribution Width SD 44.2 fl (35.1-43.9); Red Blood Count 5.84 M/mm3 (4.6-6.2); White Blood Count 8.2 K/mm3 (4.4-11.0)
[2024-04-17 07:30] LABS: Amphetamine Urine VISTA NEGATIVE (<1000 ng/mL); Barbiturate Urine VISTA NEGATIVE (< 200 ng/mL); Benzodiazepine Urine VISTA NEGATIVE (< 200 ng/mL); Cocaine Urine VISTA NEGATIVE (< 300 ng/mL); Ecstacy Urine VISTA NEGATIVE (< 500 ng/mL); Methadone Urine VISTA NEGATIVE (< 300 ng/mL); PCP Urine VISTA NEGATIVE (< 25 ng/mL); THC Urine VISTA NEGATIVE (< 50 ng/mL); Vista UDS pH Range 7
[2024-04-17 07:36] VITALS: BP 148/79; PULSE 96; RESP 17; TEMP 36.4; O2SAT 98
--- NOTE | 2024-04-17 08:13 | NURSING ---
upon pt sitting up and walking to bathroom from bed, rafy swenson falls onto floor- pt states is it is his nicotine vape. secured into pt tote. pt states he does not have any other belongings on him or tucked into his bed/sheets etc.
[2024-04-17 08:15] VITALS: BP 105/69; PULSE 55; RESP 18; TEMP 36.8; O2SAT 100; BMI 24.4
[2024-04-17] MEDS: Folic Acid 1 MG Tablet PO (08:56)
[2024-04-17] MEDS: Loperamide 2 MG Capsule PO (08:56)
[2024-04-17] MEDS: Thiamine Hydrochloride 100 MG Tablet PO (08:56)
[2024-04-17] MEDS: Ondansetron 8 MG Tablet PO (08:56)
[2024-04-17] MEDS: Phenobarbital 32.4 MG Tablet 97.2 MG PO (08:56)
[2024-04-17 08:57] LABS: Acetaminophen (Tylenol) Level < 2.0 ug/mL (10.0-30.0); Alcohol, Blood (Medical)-Serum < 3.0 mg/dL; Salicylate 1.8 mg/dL (2.8-20.0)
--- NOTE | 2024-04-17 09:22 | NURSING ---
0857: within one minute of pt taking oral meds with water, pt vomits into emesis bag- multiple pills, some with white and are dissolving. able to clearly see gabapentin, dicyclomine capsules in emesis, and orange oblong pill, unable to decipher other white tablets as they are disolving.
[2024-04-17] MEDS: Buprenorphine HCl 2 MG TAB.SUBL 4 MG SL (09:27)
[2024-04-17 09:47] LABS: ALB/GLOB Ratio 0.8 RATIO (0.9-2.4); AST(SGOT) 87 U/L (15-37); Alanine Aminotransfer ALT/SGPT 111 U/L (16-61); Albumin, Serum 3.9 g/dL (3.2-5.0); Alkaline Phosphatase 129 U/L (45-117); Anion Gap 13 (5-15); BUN 9 mg/dL (7-18); BUN/Creat Ratio 7.8 RATIO (10-20); Calcium,Total 10.8 mg/dL (8.5-10.1); Chloride 103 mmol/L (98-107); Creatinine, Serum 1.15 mg/dL (0.70-1.30); EST Glomerular Filtration Rate 74 mL/min (>60); Est Glom Filt Rate - Afr Amer 89 mL/min (>60); Estimated Creatinine Clearance 90.91 ml/min; Globulin 4.6 g/dL (2.2-4.2); Glucose 128 mg/dL (74-106); Potassium 3.6 mmol/L (3.5-5.1); Protein, Total 8.5 g/dL (6.4-8.2); Sodium Level 139 mmol/L (136-145)
[2024-04-17] MEDS: Dicyclomine 10 MG Capsule 20 MG PO (09:57)
[2024-04-17] MEDS: Gabapentin 300 MG Capsule PO (09:58)
[2024-04-17] MEDS: Methocarbamol 750 MG Tablet PO (09:58)
[2024-04-17] MEDS: Ondansetron ODT 4 MG Tablet 8 MG PO (09:58)
--- NOTE | 2024-04-17 10:03 | NURSING ---
pt currently not cooperative for IV to be placed safely/cooperatively: tremors/restlessness
--- NOTE | 2024-04-17 11:05 | ADDICTION ---
Pt has requested to leave AMA. He completed less than 24 hours of the RAMP program.
--- NOTE | 2024-04-17 18:28 | PCM.HP.STD ---
HPI - General General Date of Admission: 04/17/24 HPI Narrative MAITE TANG, is a 44 M who presents to the hospital requesting detox from alcohol and opiates. His last use was earlier today. He had been through detox twice before at least admitted but left AMA. He is having some nausea and vomiting but otherwise no significant abdominal pain. The last time he was admitted he did have a hepatitis panel that did show hepatitis C antibodies. Of note he was given Narcan in the field despite not having any respiratory depression and he had called EMS himself and was able to walk outside to meet him. [facility] Medical History Desire for detoxification Polysubstance abuse Alcohol withdrawal delirium, acute, hyperactive Opiate withdrawal Alcohol abuse Anxiety Depression Smoker Substance abuse Alcoholism /alcohol abuse IVDU (intravenous drug user) Home Medications ?Medication ?Instructions ?Recorded ?Last Taken ?Type NK 01/31/23 Unknown History Allergy/AdvReac Type Severity Reaction Status Date / Time No Known Allergies Allergy Verified 08/28/23 02:49 Family History Father Heart disease Surgical History History of surgery on extremity Social History household members: none Smoking Status: Current every day smoker tobacco type: e-cigarettes how long ago did patient quit smoking: Patient quit cig tobacco use ~ 1 year prior, 20 pack year history prior. alcohol intake: current details: Reports occasional EtOH intake. Records note 6-8 beers routinely. substance use type: heroin ROS Constitutional Constitutional: Denies chills, fatigue, fever(s) or malaise Eyes Eyes: Denies blurry vision ENT HEENT: Denies headache(s) or nasal discharge Cardiovascular Cardiovascular: Denies chest pain, dyspnea on exertion or syncope Respiratory/Chest Respiratory/Chest: Denies cough, shortness of breath at rest or shortness of breath with exertion Gastrointestinal Gastrointestinal: Reports nausea and vomiting; Denies constipation or diarrhea Genitourinary Genitourinary: Denies dysuria Musculoskeletal Musculoskeletal: Reports myalgias Neurologic Neurologic: Denies focal weakness, numbness or tremor(s) Psychiatric Psychiatric: Denies anxiety or depression Vital Signs Vital Signs Vital Signs: 04/17/24 06:01 04/17/24 06:05 04/17/24 07:36 Temperature 97.9 F 97.5 F L Temperature Source Oral Pulse Rate 69 96 Respiratory Rate 24 H 17 Blood Pressure 108/72 148/79 H Blood Pressure Mean 84 102 Blood Pressure Source Blood Pressure Position Blood Pressure Location Pulse Ox 98 Oxygen Delivery Method Room Air 04/17/24 08:15 04/17/24 08:15 Temperature 98.3 F 98.3 F Temperature Source Oral Oral Pulse Rate 55 L 55 L Respiratory Rate 18 18 Blood Pressure 105/69 105/69 Blood Pressure Mean 81 81 Blood Pressure Source Monitor Monitor Blood Pressure Position Semi-Fowlers Semi-Fowlers Blood Pressure Location Right Arm Right Arm Pulse Ox 100 100 Oxygen Delivery Method Room Air Room Air Weight Weight: 180 lb Body Mass Index (BMI) 24.4 Physical Exam Narrative General: Alert, Oriented x3, Cooperative, No apparent distress HEENT: Atraumatic, PERRLA, EOMI, Normocephalic Oral: Dry mucosa Neck: Supple, No JVD Lungs: Clear to auscultation, Normal air movement, No rhonchi, No wheeze, No rales Cardiovascular: Regular rate, Regular Rhythm, Normal S1, Normal S2, No murmurs Abdomen: Soft, Non Tender, Non-Distended, No Hepato-splenomegaly Extremities: No edema, Capillary Refill Less than 3 Seconds Skin: No rashes, No breakdown Musculoskeletal: No Tenderness to Palpation of Joints or Extremities Neurological: No focal neurological deficits, Motor Exam 5/5 strength throughout, Sensory exam intact to light touch and pain Psych/Mental Status: Anxious, restless Results Lab / Micro Data 04/17/24 06:45 04/17/24 06:45 Labs: Laboratory Results - last 24 hr 04/17/24 06:30: Urine Opiates Screen NEGATIVE, Urine Methadone Screen NEGATIVE, Ur Barbiturates Screen NEGATIVE, Ur Phencyclidine Scrn NEGATIVE, Ur Amphetamines Screen NEGATIVE, MDMA (Ecstasy) Screen NEGATIVE, U Benzodiazepines Scrn NEGATIVE, Urine Cocaine Screen NEGATIVE, U Cannabinoids Screen NEGATIVE, Ur Drug Screen Comment 04/17/24 06:45: WBC 8.2, RBC 5.84, Hgb 16.4, Hct 51.2, MCV 87.7, MCH 28.1, MCHC 32.0, RDW Std Deviation 44.2 H, RDW Coeff of Ankita 13.9, Plt Count 285, MPV 10.2, Immature Gran % (Auto) 0.200, Neut % (Auto) 72.2 H, Lymph % (Auto) 21.4, [place] % (Auto) 5.2, Eos % (Auto) 0.4, Baso % (Auto) 0.6, Absolute Neuts (auto) 5.9, Absolute Lymphs (auto) 1.76, Nucleated RBC % 0, Sodium 139, Potassium 3.6, Chloride 103, Carbon Dioxide 23.0, Anion Gap 13, BUN 9, Creatinine 1.15, Estim Creat Clear Calc 90.91, Est GFR (MDRD) Af Amer 89, Est GFR (MDRD) Non-Af 74, BUN/Creatinine Ratio 7.8 L, Glucose 128 H, Calcium 10.8 H, Total Bilirubin 0.70, AST 87 H, ALT 111 H, Alkaline Phosphatase 129 H, Total Protein 8.5 H, Albumin 3.9, Globulin 4.6 H, Albumin/Globulin Ratio 0.8 L, Salicylates 1.8 L, Acetaminophen < 2.0 L, Ethyl Alcohol < 3.0 Assessment & Plan Assessment/Plan (1) Alcohol withdrawal: (2) Opioid abuse with withdrawal: PLAN: Plan 1. Acute opiate and alcohol withdrawal/tobacco abuse ? Will continue with the alcohol and opiate withdrawal protocol ? Will have him follow-up with 180 ? Can provide medic team patch if necessary ? Can repeat HIV and hepatitis panels as he continues to inject opiates DVT: Ambulation 55 minutes was spent on direct patient care, including documentation as well as chart review and collaboration with colleagues Charges/Coding Visit Charges Inpatient E&M: 64991 Init Hosp L2
== END 2024-04-17 11:08 | disposition left against medical advice (07) ==
LOC: ED 06:59 → MS3 11:09
PROVIDERS: Admitting Provider Family Medicine; Emergency Provider Emergency Medicine; Visit Provider Family Medicine
DX: F11.13 Opioid abuse with withdrawal (principal); F10.239 Alcohol dependence with withdrawal, unspecified; F17.290 Nicotine dependence, other tobacco product, uncomplicated
CPT/HCPCS: 36415; 80053; 80307; 80329; 82077; 85025; 99221; 99283; G0378; G0480